=== PATIENT | male | born 1965 | race Caucasian/White ===

== ENCOUNTER 2021-06-28 14:57 | Emergency (ER) | payer MEDICARE, MEDICAID, SELFPAY ==
[2021-06-28 15:08] VITALS: BP 181/115; PULSE 110; RESP 18; TEMP 36.8; O2SAT 95; BMI 20.2
--- NOTE | 2021-06-28 15:21 | W.ED.ANIMALB ---
HPI - Animal Bite General: Chief Complaint: Animal Bite Stated Complaint: L leg abscess Time Seen by Provider: 06/28/21 15:16 History of Present Illness: Patient is a 56-year-old male comes to the ED with a spider bite on left leg. Past medical history of diabetes. Patient noticed spider bite approximately 2 days ago. He has been putting triple antibiotic ointment on it and keeping it covered. Spider bite is continued to get larger. Patient also has a wound on the bottom of his right foot that occurred when he stepped on attack over 2 weeks ago. Denies any redness, warmth or purulent discharge from wound and right foot. It is taking a while for it to heal. Patient is up-to-date on his tetanus. He has not had any past MRSA or staph infections. Denies any fever,, chest pain, shortness of breath, nausea/vomiting, bladder or bowel symptoms. Associated symptoms: Deny chills, fever(s) or headache(s) Review of Systems Const: Denies: fever(s), chills or fatigue Eyes: Denies: change in vision or eye discomfort ENMT: Denies: throat pain, odynophagia, nasal discharge or nasal congestion Card: Denies: chest pain, palpitations, edema, swelling of feet/ankles, dyspnea on exertion or orthopnea Resp: Denies: dyspnea, productive cough or non-productive cough GI: Denies: abdominal pain, nausea, vomiting, diarrhea, constipation or hematochezia : Denies: flank pain, difficulty urinating, dysuria or hematuria Musc: Denies: neck pain, back pain or extremity swelling Skin/Breast: Reports: new lesions (Spider bite on left leg.) and non-healing lesions (Wound on bottom right foot 2 weeks old.); Denies: rash Neuro: Denies: headache(s), numbness in extremities or weakness in extremities PFS ED PFSH: Medical History Diabetes Surgical History No pertinent past surgical history Physical Exam Const: COMMON NORMALS: no acute distress, patient oriented x3, healthy appearing and alert GENERAL APPEARANCE: cooperative and comfortable HENMT: COMMON NORMALS: normocephalic HEAD & SCALP: normocephalic MOUTH: Normal oral and palatal mucosa present THROAT: posterior oropharynx normal and uvula midline Neck/C-Spine: COMMON NORMALS: supple GENERAL: Yes normal visual inspection Resp: COMMON NORMALS: normal respiratory effort, No retractions, No use of accessory muscles and clear to auscultation bilaterally AUSCULTATION: clear to auscultation bilaterally Cardio: COMMON NORMALS: regular rate, regular rhythm, S1 normal heart sound present, S2 normal heart sound present, No gallops present (Cardio), No clicks present (Cardio), No murmurs present (Cardio) and Peripheral pulses 2+ throughout RATE: regular rate RHYTHM: regular rhythm HEART SOUNDS: S1 normal heart sound present and S2 normal heart sound present PERIPHERAL PULSES: Peripheral pulses 2+ throughout GI: COMMON NORMALS: Normal to inspection, nondistended, normoactive bowel sounds present, Soft to palpation, non-tender and no masses PALPATION: Yes Soft to palpation : COMMON NORMALS: Yes no CVA tenderness BLADDER/KIDNEY EXAM: Yes no CVA tenderness Back/Pelvis: COMMON NORMALS: no CVA tenderness Extremity: NARRATIVE EXTREMITY EXAM: Left leg?mid calf-circular lesion with some surrounding erythema. Approximately 1 cm in diameter. Skin ulceration around middle of lesion. No purulent drainage seen. No red streaking seen in left leg. Right foot?bottom of right foot showed a early stage ulcer. No erythema, warmth or purulent drainage noted. Skin breakdown only. no subcutaneous or muscle tissue seen Neuro: COMMON NORMALS: patient oriented x3 and moves all extremities SENSORIUM/ORIENTATION: Yes alert Skin: GENERAL SKIN EXAM: dry skin Course Vital Signs: Vital signs: Vital Signs Temperature 98.3 F 06/28/21 15:08 Pulse Rate 110 H 06/28/21 15:08 Respiratory Rate 18 06/28/21 15:08 Blood Pressure 181/115 06/28/21 15:08 Pulse Oximetry 95 06/28/21 15:08 MDM - Animal Bite Medical Decision Making Patient is a 56-year-old male comes to the ED with a spider bite on left leg and a ulcer on bottom of right foot. Patient is a diabetic. He is up-to-date on his tetanus. Both wounds did not appear infected. patient is nontoxic-appearing and in no acute distress or pain. Left leg wound does appear to be a spider bite likely from brown recluse. Surrounding erythema along wound that is circular and approximately 1 cm in diameter. Right foot ulcer does not appear infected either. I placed order with case management for patient referred to wound care clinic to follow-up with healing of both right foot ulcer and spider bite on left leg. Patient was discharged home with prescription for clindamycin. Return to ED precautions given. Patient will follow up with PCP as well next 7 to 10 days for reevaluation. Patient understood agree with plan. Discharge Plan Discharge Patient Disposition: Home Clinical Impression: Spider bite wound Qualifiers: Encounter type: initial encounter Injury intent: accidental or unintentional Qualified Code(s): T63.301A - Toxic effect of unspecified spider venom, accidental (unintentional), initial encounter Foot ulcer Qualifiers: Laterality: right Non-pressure ulcer stage: limited to breakdown of skin Qualified Code(s): L97.511 - Non-pressure chronic ulcer of other part of right foot limited to breakdown of skin Condition: Stable Prescriptions: New clindamycin HCl 150 mg capsule 300 mg PO QID 7 Days Qty: 56 0RF Discharge Orders: Discharge ED (Routine); Ordered 06/28/21 Ordered By: Juan Alberto Seymour Referrals: Pj Dejesus [Primary Care Provider] - Discharge Diet: Regular Discharge Activity: Increase activity as tolerated Patient Instructions: Brown Recluse Spider Bite (ED), Foot Care for People with Diabetes (DC), Diabetic Foot Ulcers (ED) Activity Restrictions/Additional Instructions: Follow-up with medical provider as directed. cant gang sawyer regarding in the next several days to set up an appointment with wound care clinic for follow-up. Take medications as prescribed. Return to the ER or your medical provider if condition worsens. Please read and understand discharge instructions. Thank you for choosing [facility] for your healthcare needs today. Please realize this is an emergency room and that we are providing you with a medical screening exam and this may not be complete and all inclusive of all the testing and or work up that you may need to determine your ailment or severity of your illness. It is very important that you follow up as instructed or that you return to the Emergency Department should you have concerns or if your condition changes or worsens in any way. Coding Level of Care Code ED Professor Of Family Medicine for Stiven Lopez Exam Comprehensive
--- NOTE | 2021-06-29 11:13 | DCPLANNER ---
Addendum entered by Gloria Burgess 07/20/21 21:12: Patient had a follow up appointment for patient with [facility] - patient did attend appointment. Addendum entered by Gloria Burgess 06/30/21 07:59: Patient has a follow up appointment scheduled for Monday, June 30, 2021 at 2:[address] Lima at [facility]. Clinic will call patient with appointment information. Original Note: games manager had message to schedule a follow up appointment for patient with [facility]. games manager sent patients information to the front office staff at [facility]. Patients information will be printed and reviewed. Clinic will call patient with appointment information.
== END 2021-06-28 15:31 | disposition home or self-care (01) ==
PROVIDERS: Emergency Provider Physician Assistant; PCP Nurse Practitioner Family
DX: T63.331A Toxic effect of venom of brown recluse spider, accidental (unintentional), initial encounter (principal); E11.621 Type 2 diabetes mellitus with foot ulcer; L97.511 Non-pressure chronic ulcer of other part of right foot limited to breakdown of skin
CPT/HCPCS: 99281

== ENCOUNTER → 2021-06-30 13:52 | Outpatient (BNVA) | payer MEDICARE, MEDICAID, SELFPAY | PROVIDERS: PCP Nurse Practitioner Family; Visit Provider Thoracic Surgery (Cardiothoracic Vascular Surgery) | DX: E11.622 Type 2 diabetes mellitus with other skin ulcer (principal); L97.821 Non-pressure chronic ulcer of other part of left lower leg limited to breakdown of skin; I96 Gangrene, not elsewhere classified; E11.621 Type 2 diabetes mellitus with foot ulcer; L97.521 Non-pressure chronic ulcer of other part of left foot limited to breakdown of skin; Z87.891 Personal history of nicotine dependence | CPT/HCPCS: 11042; 97597; 99203; 99213; A6250 ==

== ENCOUNTER 2021-10-03 16:13 | Inpatient (IN) | payer MEDICARE, MEDICAID, SELFPAY ==
[2021-10-03 16:22] VITALS: BP 163/102; PULSE 116; RESP 18; TEMP 37.9; O2SAT 96
--- NOTE | 2021-10-03 17:10 | ED_ITS ---
HPI - General Adult General: Chief complaint: Extremity Problem,Nontraumatic Stated complaint: right leg pain/swelling Time Seen by Provider: 10/03/21 17:06 History of Present Illness: Patient is a 56-year-old male with history of diabetes, gout presenting to emergency room with right big toe base swelling and erythema tracking up the right leg for the last 2 days. Patient tells me that he noticed that there are 2 puncture wounds on the bottom of his foot. Patient denies catching his foot on anything. Patient thought initially that he may be developing podagra but because the spreading redness and pain with bearing weight, he decided to come to the emergency room for further evaluation. Patient denies any fever chills, nausea/vomiting, or prior hx of podagra. Onset: 2 days ago Duration:2 days Location:home Severity:moderate Associated symptoms: Deny chest pain, dyspnea, nausea, palpitations or vomiting Review of Systems Const: Denies: fever(s) or chills Eyes: Denies: change in vision ENMT: Denies: mouth pain Card: Denies: chest pain or palpitations Resp: Denies: dyspnea or non-productive cough GI: Denies: abdominal pain, nausea, vomiting or diarrhea : Denies: dysuria Musc: Denies: extremity pain Skin/Breast: Reports: new lesions (+R foot/leg erythema and swelling) Neuro: Denies: weakness in extremities Psych: Reports: other (Normal mood) Rashawn/Lymph: Denies: easy bruising PFSH ED PFSH: Medical History Diabetes Gout Surgical History No pertinent past surgical history Social History Smoking and tobacco status: never smoked Alcohol intake: never Substance/Drug Use: never Physical Exam Const: COMMON NORMALS: alert HENMT: COMMON NORMALS: atraumatic HEAD & SCALP: atraumatic MOUTH: moist mucous membranes not abnormal Eye: COMMON NORMALS: EOMs intact bilaterally and conjunctivae normal CONJUNCTIVA: Yes conjunctivae normal Neck/C-Spine: COMMON NORMALS: full ROM and supple Resp: COMMON NORMALS: normal respiratory effort and clear to auscultation bilaterally AUSCULTATION: clear to auscultation bilaterally Cardio: COMMON NORMALS: regular rate RATE: regular rate GI: COMMON NORMALS: Soft to palpation and non-tender PALPATION: Yes Soft to palpation Extremity: COMMON NORMALS: full ROM Neuro: SENSORIUM/ORIENTATION: Yes alert MOTOR EXAM: No Abnormal motor strength present and Other motor observations present (no focal motor deficits) Psych: COMMON NORMALS: speech normal SPEECH: Yes normal speech MOOD & AFFECT: Yes euthymic mood Course Vital Signs: Vital signs: Vital Signs Temperature 100.3 F H 10/03/21 16:22 Pulse Rate 116 H 10/03/21 16:22 Respiratory Rate 18 10/03/21 16:22 Blood Pressure 163/102 10/03/21 16:22 Pulse Oximetry 96 10/03/21 16:22 MDM - General Adult Medical Decision Making 56-year-old male with history of gout and diabetes presenting to the emergency room with concerns of swelling and tracking erythema of the right big toe going into the inner aspect of the right leg. On exam, patient has a low-grade fever 100.3 degrees. Patient is noted to be mildly tachycardic to low 100s. White count 8.9 today. XR of the foot did not show any gas pattern. Patient is able to range the toe do not suspect septic joint at this time. CRP is grossly elevated 141. Patient received vancomycin and Zosyn for tracking cellulitis in the setting of diabetes possible puncture wound. Case was discussed with Dr. Mcgovern who recommended inpatient admission for observation at this time and will follow the case. Disposition: observation Lab Data : 10/03/21 17:18 10/03/21 17:18 Laboratory Results WBC 8.9 10^3/uL (4.0-10.0) 10/03/21 17:18 RBC 4.41 10^6/uL (4.1-5.3) 10/03/21 17:18 Hgb 12.1 g/dL (11.7-16.6) 10/03/21 17:18 Hct 36.1 % (42.0-52.0) L 10/03/21 17:18 MCV 81.9 fl (80-94) 10/03/21 17:18 MCH 27.4 pg (28.0-34.0) L 10/03/21 17:18 MCHC 33.5 g/dL (30.0-36.0) 10/03/21 17:18 RDW 13.4 % (12.1-15.1) 10/03/21 17:18 Plt Count 236 10^3/cmm (130-400) 10/03/21 17:18 MPV 9.9 fL (7.4-10.4) 10/03/21 17:18 Neut % (Auto) 73.5 % 10/03/21 17:18 Lymph % (Auto) 13.7 % 10/03/21 17:18 [place] % (Auto) 11.8 % 10/03/21 17:18 Eos % (Auto) 0.3 % 10/03/21 17:18 Baso % (Auto) 0.1 % 10/03/21 17:18 Neut # (Auto) 6.52 10^3/uL (1.8-7.7) 10/03/21 17:18 Lymph # (Auto) 1.2 10^3/uL (0.8-4.8) 10/03/21 17:18 [place] # (Auto) 1.1 10^3/uL (0.2-0.9) H 10/03/21 17:18 Eos # (Auto) 0.0 10^3/uL (0.0-0.8) 10/03/21 17:18 Baso # (Auto) 0.0 10^3/uL (0.0-0.1) 10/03/21 17:18 Nucleated RBC % (auto) 0 % 10/03/21 17:18 Nucleated RBCs # 0.0 /100WBC 10/03/21 17:18 ESR 39 mm/hr (0-10) H 10/03/21 17:18 Sodium 133 mmol/L (136-145) L 10/03/21 17:18 Potassium 4.0 mmol/L (3.5-5.1) 10/03/21 17:18 Chloride 96 mmol/L (98-107) L 10/03/21 17:18 Carbon Dioxide 27 mmol/L (22-29) 10/03/21 17:18 Anion Gap 14.0 (5-19) 10/03/21 17:18 BUN 10 mg/dL (6-20) 10/03/21 17:18 Creatinine 0.7 mg/dL (0.7-1.2) 10/03/21 17:18 GFR Calculation 117.5 mL/min (90-130) 10/03/21 17:18 Glucose 335 mg/dL (65-115) H 10/03/21 17:18 Calculated Osmolality 288 mOsm/kg (285-295) 10/03/21 17:18 Calcium 8.9 mg/dL (8.5-10.5) 10/03/21 17:18 C-Reactive Protein 141.7 mg/L (0.0-4.9) H 10/03/21 17:18 Discharge Plan Discharge Patient Disposition: Admitted As Inpatient Clinical Impression: Cellulitis, Pain and swelling of toe Condition: Stable Coding Level of Care Code ED Surgical Aide for Stiven Fwtroy Exam Comprehensive
--- NOTE | 2021-10-03 17:19 | XRR_ITS ---
PROCEDURE INFORMATION: Exam: XR Right Foot Exam date and time: 10/03/2021 5:49 PM Age: 56 years old Clinical indication: Swelling, leg or foot; Additional info: Foot swelling TECHNIQUE: Imaging protocol: Radiologic exam of the Right foot. Views: 1 or 2 views. COMPARISON: No relevant prior studies available. FINDINGS: Bones/joints: Pes planus. No evidence for acute fracture. Soft tissues: There is edema in the soft tissues. XR/XR foot RT 2V [id number] IMPRESSION: 1. Pes planus. 2. There is edema in the soft tissues.
[2021-10-03 17:27] LABS: Basophils % 0.1 %; Eosinophils % 0.3 %; Hematocrit 36.1 % (42.0-52.0); Hemoglobin 12.1 g/dL (11.7-16.6); Lymphocytes # 1.2 10^3/uL (0.8-4.8); Lymphocytes % 13.7 %; Mean Corpuscular HGB Conc 33.5 g/dL (30.0-36.0); Mean Corpuscular Hemoglobin 27.4 pg (28.0-34.0); Mean Corpuscular Volume 81.9 fl (80-94); Mean Platelet Volume 9.9 fL (7.4-10.4); Monocytes # 1.1 10^3/uL (0.2-0.9); Monocytes % 11.8 %; Neutrophils # 6.52 10^3/uL (1.8-7.7); Neutrophils % 73.5 %; Nucleated Red Blood Cells % 0 %; Platelet Count 236 10^3/cmm (130-400); Red Blood Count 4.41 10^6/uL (4.1-5.3); Red Cell Distribution Width 13.4 % (12.1-15.1); White Blood Count 8.9 10^3/uL (4.0-10.0)
[2021-10-03 17:44] LABS: Blood Urea Nitrogen 10 mg/dL (6-20); C Reactive Protein 141.7 mg/L (0.0-4.9); Calcium 8.9 mg/dL (8.5-10.5); Carbon Dioxide 27 mmol/L (22-29); Chloride 96 mmol/L (98-107); Glomerular Filtration Rate 117.5 mL/min (90-130); Glucose 335 mg/dL (65-115); Osmolality Calculated 288 mOsm/kg (285-295); Sodium 133 mmol/L (136-145)
[2021-10-03] MEDS: piperacillin-tazobactam 4.5 GM in sodium chloride 0.9% (plus) 50 ML IV (17:51)
[2021-10-03] MEDS: sodium chloride 0.9% 1,000 ML 999 ML IV (17:54)
[2021-10-03 17:56] LABS: Erythrocyte Sedimentation Rate 39 mm/hr (0-10)
[2021-10-03] MEDS: acetaminophen 500 mg Tablet 1000 MG PO (18:01)
[2021-10-03] MEDS: vancomycin 1,000 MG in sodium chloride 0.9% 250 ML 250 MG IV (18:41)
--- NOTE | 2021-10-03 19:55 | P.HP_ITS ---
Providers/Chief Complaint Admitting Physician: Rupert Peres Primary Care Provider: Pj Dejesus Chief Complaint: right leg pain/swelling History of Present Illness Pleasant 56-year-old gentleman with history of diabetes, gout, noticed redness, swelling initially in the bottom of the right hallux, starting around - Monday, with pain, redness, swelling spreading to the entire toe, proximal foot and a thin strand of redness tracking upward from the medial leg. He is now also developed chills, in ER he is noted to be febrile 100.3. Sinus tachycardia 116. ESR is 39. CRP 141.7. He denies remembering any definitive injury. No fracture noted on x-ray. He initially started taking a gout medication thinking it was a gout flare. Blood cultures were collected and he was started on Zosyn, vancomycin empirically. He is awaiting additional assessment by podiatry. Review of Systems Const: Reports: fever(s) and chills Eyes: Denies: change in vision, eye discomfort or eye redness ENMT: Denies: throat pain, oral sores or ear or mastoid pain Card: Denies: chest pain, edema, pre-syncope or dyspnea on exertion Resp: Denies: dyspnea, productive cough, change in phlegm color or hemoptysis GI: Denies: abdominal pain, nausea, vomiting, diarrhea, constipation, hematochezia or melena : Denies: flank pain, difficulty urinating, urinary frequency or hematuria Musc: Reports: other (As above.); Denies: back pain Skin/Breast: Denies: rash or new lesions Neuro: Denies: headache(s), numbness in extremities, weakness in extremities, dizziness, confusion or seizure-like activity Endo: Denies: polyuria or polydipsia Rashawn/Lymph: Denies: easy bleeding or tender lymph nodes All/Imm: Denies: urticaria or tongue swelling Medications/Allergies Allergies Allergy/AdvReac Type Severity Reaction Status Date / Time iodine Allergy ALGY-Swell Verified 10/03/21 16:25 Lip/Tongue/Throat Sulfa (Sulfonamide Allergy ADR-Itching Verified 10/03/21 16:25 Antibiotics) PFSH Acute PFSH: Medical History (Updated 10/03/21 @ 20:04 by Rupert Peres MD) Diabetes Gout Surgical History No pertinent past surgical history Family History Mother Diabetes Social History Smoking and tobacco status: never smoked Alcohol intake: never Substance/Drug Use: never Vitals/I&O/Wt Last Vital Signs Temp 100.3 F H 10/03/21 16:22 Pulse 116 H 10/03/21 16:22 Resp 18 10/03/21 16:22 BP 163/102 10/03/21 16:22 Pulse Ox 96 10/03/21 16:22 Weight last 48 hrs Weight 79.379 kg Physical Exam Const: COMMON NORMALS: alert GENERAL APPEARANCE: cooperative ORIENTATION/CONSCIOUSNESS: Yes awake HENMT: COMMON NORMALS: normocephalic, EAC's normal, Normal external nose present and moist oral mucous membranes HEAD & SCALP: normocephalic NOSE: Normal external nose present EXTERNAL AUDITORY CANAL: EAC's normal Neck/C-Spine: COMMON NORMALS: no meningeal signs Chest: CHEST: Yes Symmetrical chest wall rise Resp: COMMON NORMALS: clear to auscultation bilaterally AUSCULTATION: clear to auscultation bilaterally Cardio: COMMON NORMALS: regular rate, regular rhythm and No murmurs present (Cardio) RATE: regular rate RHYTHM: regular rhythm GI: COMMON NORMALS: Normal to inspection, nondistended, normoactive bowel sounds present, Soft to palpation and non-tender PALPATION: Yes Soft to palpation Extremity: COMMON NORMALS: no pedal edema OTHER: R hallux swelling, two spots of 0.5cm bruising medially. Thin red strand tracking up medial side of lower leg to mid-[place]. Neuro: COMMON NORMALS: moves all extremities SENSORIUM/ORIENTATION: Yes alert MENINGEAL SIGNS: Yes no meningeal signs Psych: COMMON NORMALS: mental status grossly normal Skin: COMMON NORMALS: no wounds RASHES: no rashes Data : 10/03/21 17:18 10/03/21 17:18 Micro: Microbiology 10/03/21 17:44 Blood Culture - Preliminary Blood SPECIMEN COLLECTED 10/03/21 17:44 Blood Culture - Preliminary Blood SPECIMEN COLLECTED A&P Assessment and plan (1) Diabetic foot infection: Infection of right hallux with redness, swelling, tenderness, bruising, with chills, fever, lymphatic tracking on medial side of her right leg. Elevation of CRP, ESR. Possible sepsis with sinus tachycardia 116. Fever 100.3. Check lactate. Continue. Antibiotics with Zosyn, vancomycin. Follow-up blood cultures. MRI right foot to assess for deeper infection/osteomyelitis. Pending evaluation by podiatry. Status: Acute (2) Gout: Has also history of gout. Check uric acid. Status: Acute Plan Diabetes: Normally takes 5 units of Basaglar at night. Metformin and glipizide. Hold oral hypoglycemics for now. Continue long-acting insulin. Sliding scale. Attestations Medical Necessity Statement*: Place in observation for additional assessment management of diabetic foot infection, assessment for deep infection, possible osteomyelitis, with possible sepsis. Coding Level of Care Code Acute Natural Resources Professor for [facility] Fwd Exam Comprehensive Diagnoses Diabetic foot infection E11.628; L08.9 Gout M10.9
[2021-10-03 20:13] VITALS: BMI 17.0
[2021-10-03 20:23] VITALS: BP 160/87; PULSE 96; RESP 16; TEMP 37.3; O2SAT 97
[2021-10-03 20:48] LABS: Lactate (Lactic Acid level) 2.7 mmol/L (0.5-2.2)
[2021-10-03 20:49] LABS: Uric Acid 4.3 mg/dL (3.4-7.0)
[2021-10-03 20:54] LABS: Glucose Point of Care 167 mg/dL (70-110)
--- NOTE | 2021-10-03 21:22 | P.CONIM_ITS ---
Providers/Reason For Consult Consulting Physician/Specialty*: Alvin Mcgovern D.P.M. Reason for Consult*: Cellulitis right lower extremity Attending Physician: Rupert Peres Primary Care Provider: Pj Dejesus History of Present Illness History of Present Illness Armando Berumen is a 56 year old male presented to the emergency department last night 10/03/2021 and admitted to the hospital service per emergency physicians recommendations. Friday, October 01, 2021 he began noticing redness at his right great toe and was unsure of the etiology. Does not remember stepping on anything. Patient has history of gout was also diabetic, uncontrolled last A1c 11.97 1122. Patient denies any subjective nausea, vomiting, fever, chills, shortness of breath or chest pain. Review of Systems General: Reports: 10 or more systems reviewed and unremarkable except in HPI and below Const: Denies: fever(s) or chills Card: Denies: chest pain or palpitations Resp: Denies: productive cough GI: Denies: abdominal pain, nausea or vomiting : Denies: flank pain Musc: Reports: extremity swelling, joint pain, joint stiffness, limited range of motion and deformity Skin/Breast: Reports: erythema, skin tenderness, skin swelling, sores, nail changes and change in hair; Denies: rash Neuro: Reports: numbness in extremities, sensory changes and difficulty walking Psych: Denies: suicidal ideation Rashawn/Lymph: Denies: easy bruising Medications/Allergies Home Medications Medication Instructions Recorded Confirmed Last Taken Type amoxicillin 875 mg-potassium 1 tab PO Q12H 10/03/21 10/03/21 09/30/21 History clavulanate 125 mg tablet colchicine 0.6 mg tablet 0.6 mg PO BID 10/03/21 10/03/21 10/02/21 23:00 History duloxetine 30 mg capsule,delayed 30 mg PO BID 10/03/21 10/03/21 10/02/21 23:00 History release gabapentin 100 mg capsule 100 mg PO TID 10/03/21 10/03/21 10/02/21 23:00 History glipizide 10 mg tablet 20 mg PO BID 10/03/21 10/03/21 10/02/21 23:00 History insulin glargine 100 unit/mL (3 5 unit SUBCUT BEDTIME 0710/03/21 10/01/21 23:00 History mL) subcutaneous pen (Basaglar KwikPen U-100 Insulin) ketorolac 10 mg tablet 10 mg PO Q6H PRN 10/03/21 10/03/21 Unknown History lisinopril 20 mg tablet 20 mg PO BID 10/03/21 10/03/21 10/02/21 23:00 History metformin 1,000 mg tablet 1,000 mg PO BIDWMEAL 10/03/21 10/03/21 10/02/21 23:00 History propranolol 40 mg tablet 40 mg PO BEDTIME 10/03/21 10/03/21 09/30/21 23:00 History rizatriptan 10 mg tablet 10 mg PO Q2H PRN 10/03/21 10/03/21 Unknown History simvastatin 20 mg tablet 20 mg PO BEDTIME 10/03/21 10/03/21 10/02/21 23:00 History sitagliptin 50 mg tablet (Januvia) 50 mg PO BEDTIME 10/03/21 10/03/21 10/02/21 23:00 History trazodone 50 mg tablet 50 mg PO BEDTIME 10/03/21 10/03/21 10/01/21 23:00 History Allergies Allergy/AdvReac Type Severity Reaction Status Date / Time iodine Allergy ALGY-Swell Verified 10/03/21 16:25 Lip/Tongue/Throat Sulfa (Sulfonamide Allergy ADR-Itching Verified 10/03/21 16:25 Antibiotics) PFSH Acute PFSH: Medical History (Updated 10/04/21 @ 07:56 by Alvin Mcgovern DPM) Diabetes Gout Surgical History No pertinent past surgical history Family History Mother Diabetes Social History Smoking and tobacco status: never smoked Alcohol intake: never Substance/Drug Use: never Vitals/I&O/Wt Last Vital Signs Temp 99.2 F 10/03/21 20:23 Pulse 96 10/03/21 20:23 Resp 16 07/10/22 20:23 BP 160/87 10/03/21 20:23 Pulse Ox 97 10/03/21 20:23 10/03/21 10/03/21 10/03/21 06:59 14:59 22:59 Intake Total 1300 / 1300 Balance 1300 / 1300 Weight last 48 hrs Weight 133 lb Weight 175 lb Physical Exam Narrative: GENERAL: Patient is alert and oriented ?3 and in no acute distress. The following is a focused bilateral lower extremity exam. VASCULAR: Dorsalis pedis palpable bilaterally. Posterior tibial arteries palpable +2. Capillary refill time less than 3 seconds to the distal hallux bilaterally. Calf is supple and nontender proximally and distally. Decreased pedal hair growth. Focal edema to the right great toe. NEUROLOGICAL: Protective sensation intact 6/10 sites, tested with [place] Megan monofilament to bilateral feet. DERMATOLOGICAL: Puncture wound to the plantar medial aspect of the right great toe just distal to the hallux interphalangeal joint, no surrounding hyperkeratosis, does not probe, tunnel or undermine. There is cellulitis with proximal lymphangitic streaking up the medial aspect of the leg. No jeremiah purulence. No necrosis or target/bull's-eye pattern. MUSCULOSKELETAL: Tenderness at right great toe distal to the metatarsal phalangeal joint. Pes planus foot type. Data : 10/04/21 04:28 10/04/21 04:28 Micro: Microbiology 10/03/21 17:44 Blood Culture - Preliminary Blood SPECIMEN COLLECTED 10/03/21 17:44 Blood Culture - Preliminary Blood SPECIMEN COLLECTED A&P Assessment and plan (1) Cellulitis of right lower extremity: Status: Acute (2) Insect bite of right foot: Status: Acute (3) Diabetic peripheral neuropathy associated with type 2 diabetes mellitus: Status: Acute Plan 56-year-old uncontrolled diabetic male with cellulitis and lymphangitic streaking right lower extremity originating from right great toe, 2 small puncture wounds consistent with insect bite appreciated, does not have clinical appearance of neuropathic foot ulcer. Receiving empiric antibiotics at this time vancomycin and Zosyn, wound not deep enough to capture viable wound culture. Skin marker outlines involvement of cellulitis will monitor his response and plan on discharge with oral antibiotics when he shows clinical improvement. Can follow-up closely this week in podiatry clinic at discharge. 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
--- NOTE | 2021-10-03 22:02 | PC.PHAR ---
Vancomycin is dosed at 1250mg IVPB every 12 hours to produce a predicted trough level of 15.73 (population based pharmacokinetic analysis). A trough level has been ordered from the lab to be obtained before th fourth dose to confirm and adjust if needed.
[2021-10-03] MEDS: insulin lispro 100 unit/1 mL SUBCUT (22:42)
[2021-10-03] MEDS: enoxaparin 40 mg/0.4 mL Syringe SUBCUT (22:43)
[2021-10-03] MEDS: insulin glargine 100 units/1 mL 5 UNIT SUBCUT (22:44)
[2021-10-03 23:23] VITALS: BP 148/100; PULSE 97; RESP 18; TEMP 37.1; O2SAT 97
--- NOTE | 2021-10-03 23:23 | PC.NURSE ---
I reported the high bp to the nurse. 148/100
[2021-10-04] MEDS: propranolol 40 mg Tablet PO ×2 (00:21→20:11)
[2021-10-04] MEDS: trazodone 50 mg Tablet PO ×2 (00:21→20:11)
[2021-10-04] MEDS: atorvastatin 40 mg Tablet 20 MG PO ×2 (00:21→20:12)
[2021-10-04] MEDS: piperacillin-tazobactam 3.375 GM in sodium chloride 0.9% (plus) 50 ML IV ×3 (00:22→17:41)
[2021-10-04 04:00] VITALS: BP 143/94; PULSE 95; RESP 14; TEMP 37.6; O2SAT 94
[2021-10-04 04:40] LABS: Basophils % 0.2 %; Eosinophils # 0.1 10^3/uL (0.0-0.8); Eosinophils % 1.5 %; Hematocrit 33.2 % (42.0-52.0); Hemoglobin 11.3 g/dL (11.7-16.6); Lymphocytes # 1.6 10^3/uL (0.8-4.8); Lymphocytes % 18.9 %; Mean Corpuscular Hemoglobin 27.5 pg (28.0-34.0); Mean Corpuscular Volume 80.8 fl (80-94); Mean Platelet Volume 9.7 fL (7.4-10.4); Monocytes # 1.1 10^3/uL (0.2-0.9); Monocytes % 13.1 %; Neutrophils # 5.46 10^3/uL (1.8-7.7); Neutrophils % 66.1 %; Nucleated Red Blood Cells % 0 %; Platelet Count 211 10^3/cmm (130-400); Red Blood Count 4.11 10^6/uL (4.1-5.3); Red Cell Distribution Width 13.4 % (12.1-15.1); White Blood Count 8.3 10^3/uL (4.0-10.0)
[2021-10-04 05:05] LABS: Blood Urea Nitrogen 7 mg/dL (6-20); Calcium 8.3 mg/dL (8.5-10.5); Carbon Dioxide 29 mmol/L (22-29); Chloride 102 mmol/L (98-107); Glomerular Filtration Rate 117.5 mL/min (90-130); Glucose 161 mg/dL (65-115); Osmolality Calculated 289 mOsm/kg (285-295); Sodium 139 mmol/L (136-145)
[2021-10-04 05:35] LABS: Estmated Average Glucose 295; Hemoglobin A1C 11.9 % (4.0-6.0)
[2021-10-04 06:14] LABS: Glucose Point of Care 167 mg/dL (70-110)
[2021-10-04 07:30] VITALS: BP 138/89; PULSE 86; RESP 18; TEMP 36.9; O2SAT 96
[2021-10-04 08:48] LABS: Thyroid Stimulating Hormone 1.18 uIU/mL (0.27-4.20)
[2021-10-04] MEDS: duloxetine 30 mg Capsule PO ×2 (08:54→17:40)
[2021-10-04] MEDS: gabapentin 100 mg Capsule PO ×3 (08:54→20:12)
[2021-10-04] MEDS: colchicine 0.6 mg Tablet PO ×2 (09:15→17:40)
[2021-10-04] MEDS: insulin lispro 100 unit/1 mL SUBCUT ×4 (09:16→21:55)
--- NOTE | 2021-10-04 09:30 | MR_ITS ---
WS: [id number] INDICATION: Foot swelling. Osteomyelitis. TECHNIQUE: MRI the RIGHT foot without and with gadolinium enhancement. Coronal PD coronal PD fat sat axial T2 and axial PD axial T2 fat sat post gadolinium imaging was obtained with facet. Technique FINDINGS: Osteopenia. Pes planus. Mild soft tissue edema plantar forefoot. Normal fatty T1 bone marro w signal in the metatarsals. Small area of ulceration in the area of palpable concern along the dista l 1st phalanx. Small amount of soft tissue edema. No drainable abscess or fluid collection. Degenerat unique cystic change in this area. T1 bone marrow appears preserved. No convincing evidence of osteomyel itis in this area. This area is somewhat difficult to evaluate due to the distal location and loss of signal in this area. MR/MR foot RT wo/w con [id number] IMPRESSION: 1. Small amount of cellulitis in the area of ulceration distal phalanx 1st toe . 2. No evidence of drainable abscess or fluid collection. 3. No convincing evidence of osteomyelitis. Bone marrow signal appears preserv ed in this area
[2021-10-04 11:00] VITALS: BP 159/90; PULSE 65; O2SAT 97
[2021-10-04 11:02] LABS: Iron 21 ug/dL (59-158); Percent Saturation 12.4 % (20-50); Total Iron Binding Capacity 169 mcg/dl; Unsaturated Iron Binding 148 ug/dL (112-347)
[2021-10-04 11:24] LABS: Glucose Point of Care 256 mg/dL (70-110)
[2021-10-04 14:25] LABS: Add Urine Microscopic? YES; Bilirubin Urine Neg (Negative); Blood Urine Neg (Negative); Glucose Urine UA 4+ (Normal); Ketones Urine Negative (Negative); Leukocyte Esterase Urine Negative (Negative); Nitrate Urine Negative (Negative); Protein Urine Trace (Negative); Specific Gravity, Urine 1.015 (1.005-1.030); Urine Appearance Clear (CLEAR); Urine Color Yellow (Yellow); Urobilinogen Urine Norm (Negative); pH Urine 6 (5-7)
[2021-10-04 14:26] LABS: Add Urine Culture? No; Bacteria Urine TRACE /hpf; WBC Urine RARE /hpf (0-5)
--- NOTE | 2021-10-04 14:56 | P.PN_ITS ---
Subjective Subjective: Admitted overnight. No acute events overnight. Denies any nausea, vomiting, headache. Has remained hemodynamically stable and afebrile. Vitals/I&O/Wt Last Vital Signs Temp 98.4 F 10/04/21 07:30 Pulse 65 10/04/21 11:00 Resp 18 10/04/21 07:30 BP 159/90 10/04/21 11:00 Pulse Ox 97 10/04/21 11:00 10/03/21 10/04/21 10/04/21 22:59 06:59 14:59 Intake Total 1540 / 1540 50 / 1590 300 / 300 Output Total 650 / 650 Balance 1540 / 1540 50 / 1590 -350 / -350 Weight last 48 hrs Weight 60.328 kg Weight 79.379 kg Physical Exam Const: COMMON NORMALS: alert GENERAL APPEARANCE: cooperative ORIENTATION/CONSCIOUSNESS: Yes awake HENMT: COMMON NORMALS: normocephalic, EAC's normal, Normal external nose present and moist oral mucous membranes HEAD & SCALP: normocephalic NOSE: Normal external nose present EXTERNAL AUDITORY CANAL: EAC's normal Neck/C-Spine: COMMON NORMALS: no meningeal signs Chest: CHEST: Yes Symmetrical chest wall rise Resp: COMMON NORMALS: clear to auscultation bilaterally AUSCULTATION: clear to auscultation bilaterally Cardio: COMMON NORMALS: regular rate, regular rhythm and No murmurs present (Cardio) RATE: regular rate RHYTHM: regular rhythm GI: COMMON NORMALS: Normal to inspection, nondistended, normoactive bowel soun ds present, Soft to palpation and non-tender PALPATION: Yes Soft to palpation Extremity: COMMON NORMALS: no pedal edema OTHER: Clean dressing as per podiatry. Neuro: COMMON NORMALS: moves all extremities SENSORIUM/ORIENTATION: Yes alert MENINGEAL SIGNS: Yes no meningeal signs Psych: COMMON NORMALS: mental status grossly normal Skin: COMMON NORMALS: no wounds RASHES: no rashes Data : 10/04/21 04:28 10/04/21 04:28 Micro: Microbiology 10/04/21 13:02 Bacterial Antigens - Final Urine Kidney 10/03/21 17:44 Blood Culture - Preliminary Blood SPECIMEN COLLECTED 10/03/21 17:44 Blood Culture - Preliminary Blood SPECIMEN COLLECTED A&P Assessment and plan (1) Diabetic foot infection: ESR mildly elevated. X-ray negative for osteomyelitis. MRI ordered overnight. Check MRSA swab. Follow blood culture. For now continue with vancomycin and Zosyn. Status: Acute (2) Gout: Has also history of gout. Check uric acid. Status: Acute (3) Diabetic peripheral neuropathy associated with type 2 diabetes mellitus: Status: Acute (4) Insect bite of right foot: Status: Acute (5) Diabetes: Uncontrolled. A1c more than 11. At home takes Basaglar 5 units, metformin and glipizide. Discussed in detail for possible need of being on insulin going forward. Patient is agreeable. For now continue with Lantus 15 units daily. Insulin sliding scale at moderate dose protocol. Most likely will need to discharge on one-time Lantus and Premeal insulin. We will monitor blood sugars for next 24 hours and decide about the dose accordingly. Status: Acute Plan Analgesia: Ketorolac 10 mg every 6 hourly, Tylenol, gabapentin 100 mg 3 times daily Glycemic control: Lantus 15 units, moderate dose protocol Nutrition: Cardiac carb consistent diet CODE STATUS: Full code PUD prophylaxis: Not needed DVT prophylaxis: Not needed Discharge planning: Plan to discharge within 24 hours once medically cleared if cellulitis continues to improve on oral antibiotics. Continue care at [facility] floor. 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
[2021-10-04 16:00] VITALS: BP 159/93; PULSE 86; RESP 15; TEMP 36.9; O2SAT 98
[2021-10-04 17:41] LABS: Glucose Point of Care 217 mg/dL (70-110)
--- NOTE | 2021-10-04 19:02 | PC.NURSE ---
Bedside report given to Yadira KOENIG at this time. Pt A&Ox4 with normal respirations.
[2021-10-04 20:00] VITALS: BP 107/55; PULSE 96; RESP 16; TEMP 37.1; O2SAT 96
[2021-10-04] MEDS: enoxaparin 40 mg/0.4 mL Syringe SUBCUT (20:12)
[2021-10-04 21:33] LABS: Glucose Point of Care 292 mg/dL (70-110)
[2021-10-04] MEDS: insulin glargine 100 units/1 mL 15 UNIT SUBCUT (21:55)
[2021-10-05] VITALS: BP 142/87; PULSE 76; RESP 18; TEMP 37.1; O2SAT 96
[2021-10-05] MEDS: piperacillin-tazobactam 3.375 GM in sodium chloride 0.9% (plus) 50 ML IV ×2 (01:20→08:09)
[2021-10-05 04:00] VITALS: BP 134/68; PULSE 85; TEMP 36.3; O2SAT 97
[2021-10-05 04:54] LABS: Basophils % 0.2 %; Eosinophils # 0.1 10^3/uL (0.0-0.8); Eosinophils % 1.7 %; Hemoglobin 11.3 g/dL (11.7-16.6); Lymphocytes # 1.4 10^3/uL (0.8-4.8); Lymphocytes % 17.5 %; Mean Corpuscular HGB Conc 33.2 g/dL (30.0-36.0); Mean Corpuscular Hemoglobin 27.3 pg (28.0-34.0); Mean Corpuscular Volume 82.1 fl (80-94); Mean Platelet Volume 9.8 fL (7.4-10.4); Neutrophils # 5.62 10^3/uL (1.8-7.7); Neutrophils % 68.1 %; Nucleated Red Blood Cells % 0 %; Platelet Count 261 10^3/cmm (130-400); Red Blood Count 4.14 10^6/uL (4.1-5.3); Red Cell Distribution Width 13.2 % (12.1-15.1); White Blood Count 8.3 10^3/uL (4.0-10.0)
[2021-10-05 05:17] LABS: Alanine Aminotransferase 14 U/L (0-41); Albumin Level 3.4 g/dL (3.5-5.2); Alkaline Phosphatase 63 IU/L (40-130); Anion Gap 12.5 (5-19); Aspartate Amino Transferase 12 U/L (0-40); Blood Urea Nitrogen 9 mg/dL (6-20); Calcium 8.5 mg/dL (8.5-10.5); Carbon Dioxide 29 mmol/L (22-29); Chloride 101 mmol/L (98-107); Chol HDL Ratio 3.05 mg/dL (1.0-5.00); Cholesterol 128 mg/dL (0-200); Globulin 3.2 g/dL (1.3-4.6); Glomerular Filtration Rate 117.5 mL/min (90-130); Glucose 150 mg/dL (65-115); HDL Cholesterol 42 mg/dL (60-100); LDL Cholesterol Calculated 68 mg/dL (50-129); Osmolality Calculated 290 mOsm/kg (285-295); Potassium 3.5 mmol/L (3.5-5.1); Sodium 139 mmol/L (136-145); Total Bilirubin 0.6 mg/dL (0.15-1.2); Total Protein 6.6 g/dL (6.6-8.7); Triglycerides 91 mg/dL (0-150); VLDL Cholestrol Calculation 18 mg/dL (0-30)
--- NOTE | 2021-10-05 07:33 | PM.PN ---
Subjective Subjective: Patient seen bedside this morning, tolerating regular diet. Reports decreased swelling and decreased pain to the right foot. Patient denies any subjective nausea, vomiting, fever, chills, shortness of breath or chest pain. Vitals/I&O/Wt Last Vital Signs Temp 97.3 F L 10/05/21 04:00 Pulse 85 10/05/21 04:00 Resp 18 10/05/21 00:00 BP 134/68 10/05/21 04:00 Pulse Ox 97 10/05/21 04:00 10/04/21 10/05/21 10/05/21 22:59 06:59 14:59 Intake Total 280 / 580 310 / 890 Output Total 225 / 875 Balance 55 / -295 310 / 15 Weight last 48 hrs Weight 133 lb Weight 175 lb Physical Exam Narrative: GENERAL: Patient is alert and oriented ?3 and in no acute distress. The following is a focused bilateral lower extremity exam. VASCULAR: Dorsalis pedis palpable bilaterally. Posterior tibial arteries palpable +2. Capillary refill time less than 3 seconds to the distal hallux bilaterally. Calf is supple and nontender proximally and distally. Decreased pedal hair growth. Focal edema to the right great toe. NEUROLOGICAL: Protective sensation intact 6/10 sites, tested with [place] Megan monofilament to bilateral feet. DERMATOLOGICAL: Previously documented puncture wound to the plantar medial aspect of the right great toe is no longer draining. Previously documented lymphangitic streaking up the medial ankle and medial leg has resolved. Erythema localized at the medial foot also subsiding significantly. Area of erythema that remains is at the right great toe on medial aspect of the first metatarsal phalangeal joint. No soft tissue crepitus on palpation. MUSCULOSKELETAL: Tenderness at right great toe distal to the metatarsal phalangeal joint. Pes planus foot type. Data : 10/05/21 04:25 10/05/21 04:25 Micro: Microbiology 10/03/21 17:44 Blood Culture - Preliminary Blood NEGATIVE TO DATE 10/03/21 17:44 Blood Culture - Preliminary Blood NEGATIVE TO DATE 10/04/21 13:02 Bacterial Antigens - Final Urine Kidney A&P Assessment and plan (1) Cellulitis of right lower extremity: Status: Acute (2) Insect bite of right foot: Status: Acute (3) Diabetic peripheral neuropathy associated with type 2 diabetes mellitus: Status: Acute Plan 56-year-old uncontrolled diabetic male with cellulitis and lymphangitic streaking right lower extremity originating from right great toe, 2 small puncture wounds consistent with insect bite appreciated, does not have clinical appearance of neuropathic foot ulcer. Receiving empiric antibiotics at this time vancomycin and Zosyn, wound not deep enough to capture viable wound culture. Skin marker outlines involvement of cellulitis will monitor his response and plan on discharge with oral antibiotics when he shows clinical improvement. Can follow-up closely this week in podiatry clinic at discharge. Interim update 10/05/2021 Patient okay for discharge from podiatry standpoint. Significant clinical improvement with subsidence of erythema and lymphangitic streaking. MRI negative for foreign body, negative for septic joint and negative for osteomyelitis. No leukocytosis, patient is afebrile. Okay for discharge home on oral antibiotic regimen will follow-up in podiatry clinic 10/11/2021 4:00 PM. He is to monitor his right great toe daily and contact her clinic with any worsening of symptoms. May keep it covered with a Band-Aid, minimal dressing required as there is no open draining sore at this time. May weight-bear as tolerated. Elevate right foot while resting. 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
[2021-10-05 07:45] VITALS: BP 161/91; PULSE 81; RESP 17; TEMP 36.9; O2SAT 95
[2021-10-05] MEDS: duloxetine 30 mg Capsule PO ×2 (08:03→16:24)
[2021-10-05] MEDS: gabapentin 100 mg Capsule PO ×2 (08:03→16:25)
[2021-10-05] MEDS: colchicine 0.6 mg Tablet PO ×2 (08:04→16:24)
[2021-10-05] MEDS: insulin lispro 100 unit/1 mL SUBCUT ×2 (08:10→11:52)
[2021-10-05 09:21] LABS: Glucose Point of Care 174 mg/dL (70-110)
[2021-10-05 11:05] LABS: Glucose Point of Care 217 mg/dL (70-110)
[2021-10-05 11:26] VITALS: BP 171/97; PULSE 80; RESP 16; TEMP 36.8; O2SAT 96
[2021-10-05] MEDS: acetaminophen 325 mg Tablet 650 MG PO (11:51)
--- NOTE | 2021-10-05 12:16 | P.DS_ITS ---
Discharge Providers Date of Admission: 10/04/21 17:46 Date of Discharge: October 05, 2021 Attending Provider at Admission: Rupert Peres Attending Provider at Discharge: [place] MD Consults: Podiatry: Dr. Mcgovern Primary Care Provider: Pj Dejesus Diagnoses at Discharge Discharge Diagnosis (1) Cellulitis of right lower extremity: Status: Acute (2) Insect bite of right foot: Status: Acute (3) Diabetic peripheral neuropathy associated with type 2 diabetes mellitus: Status: Acute Reason for Visit Reason for Visit: right leg pain/swelling Brief History: History as per HPI: Pleasant 56-year-old gentleman with history of diabetes, gout, noticed redness, swelling initially in the bottom of the right hallux, starting around - Monday, with pain, redness, swelling spreading to the entire toe, proximal foot and a thin strand of redness tracking upward from the medial leg.? He is now also developed chills, in ER he is noted to be febrile 100.3.? Sinus tachycardia 116.? ESR is 39.? CRP 141.7.? He denies remembering any definitive injury.? No fracture noted on x-ray. Hospital Course Hospital Course Patient went to the hospital further evaluation and management. He was started on broad-spectrum antibiotics. Podiatry was consulted. Patient underwent imaging which ruled out osteomyelitis. His blood cultures remain negative. Patient was found to have uncontrolled type 2 diabetes mellitus. He has been discharged hemodynamically stable condition on oral Augmentin and Levaquin for next 7 days. He is advised to stop his oral hypoglycemics including glipizide, Januvia, metformin. Instead his dose of Basaglar has been increased to 20 units nightly. He is to take lispro 7 units prior to breakfast, lunch and dinner. He is to check his fasting blood sugars daily and maintain a blood sugar diary for next 2 weeks and follow-up with his primary care provider for further adjustments of insulin accordingly. If his fasting blood sugar drop below 80 he is to decrease 3 units of Basaglar to 17 units. The above plan was discussed in detail with the patient and he verbalized understanding and all his questions were answered. Physical Exam Const: COMMON NORMALS: alert GENERAL APPEARANCE: cooperative ORIENTATION/CONSCIOUSNESS: Yes awake HENMT: COMMON NORMALS: normocephalic, EAC's normal, Normal external nose present and moist oral mucous membranes HEAD & SCALP: normocephalic NOSE: Normal external nose present EXTERNAL AUDITORY CANAL: EAC's normal Neck/C-Spine: COMMON NORMALS: no meningeal signs Chest: CHEST: Yes Symmetrical chest wall rise Resp: COMMON NORMALS: clear to auscultation bilaterally AUSCULTATION: clear to auscultation bilaterally Cardio: COMMON NORMALS: regular rate, regular rhythm and No murmurs present (Cardio) RATE: regular rate RHYTHM: regular rhythm GI: COMMON NORMALS: Normal to inspection, nondistended, normoactive bowel sounds present, Soft to palpation and non-tender PALPATION: Yes Soft to palpation Extremity: COMMON NORMALS: no pedal edema OTHER: Clean dressing as per podiatry. Neuro: COMMON NORMALS: moves all extremities SENSORIUM/ORIENTATION: Yes alert MENINGEAL SIGNS: Yes no meningeal signs Psych: COMMON NORMALS: mental status grossly normal Skin: COMMON NORMALS: no wounds RASHES: no rashes Discharge Data Studies Completed and Pending Completed Studies During Hospitalization Category Date Time Status XR foot RT 2V [id number] Urgent Exams 10/03/21 17:19 Completed MR foot RT wo/w con 01100 Routine MRI 10/04/21 09:30 Completed Pending at discharge Category Date Time Status Blood Culture Stat Lab 10/03/21 17:44 Results Complete Blood Count w/Auto AM LABS Lab 10/06/21 04:00 Ordered MRSA by PCR Routine Lab 10/04/21 10:35 Received Vancomycin Trough Timed Lab 10/05/21 18:00 Ordered Radiology Impressions Foot X-Ray 10/03/21 17:19 IMPRESSION: 1. Pes planus. 2. There is edema in the soft tissues. Foot MRI 10/04/21 09:30 IMPRESSION: 1. Small amount of cellulitis in the area of ulceration distal phalanx 1st toe. 2. No evidence of drainable abscess or fluid collection. 3. No convincing evidence of osteomyelitis. Bone marrow signal appears preserve d in this area Laboratory Results WBC 8.3 10^3/uL (4.0-10.0) 10/05/21 04:25 RBC 4.14 10^6/uL (4.1-5.3) 10/05/21 04:25 Hgb 11.3 g/dL (11.7-16.6) L 10/05/21 04:25 Hct 34.0 % (42.0-52.0) L 10/05/21 04:25 MCV 82.1 fl (80-94) 10/05/21 04:25 MCH 27.3 pg (28.0-34.0) L 10/05/21 04:25 MCHC 33.2 g/dL (30.0-36.0) 10/05/21 04:25 RDW 13.2 % (12.1-15.1) 10/05/21 04:25 Plt Count 261 10^3/cmm (130-400) 10/05/21 04:25 MPV 9.8 fL (7.4-10.4) 10/05/21 04:25 Neut % (Auto) 68.1 % 10/05/21 04:25 Lymph % (Auto) 17.5 % 10/05/21 04:25 [place] % (Auto) 12.0 % 10/05/21 04:25 Eos % (Auto) 1.7 % 10/05/21 04:25 Baso % (Auto) 0.2 % 10/05/21 04:25 Neut # (Auto) 5.62 10^3/uL (1.8-7.7) 10/05/21 04:25 Lymph # (Auto) 1.4 10^3/uL (0.8-4.8) 10/05/21 04:25 [place] # (Auto) 1.0 10^3/uL (0.2-0.9) H 10/05/21 04:25 Eos # (Auto) 0.1 10^3/uL (0.0-0.8) 10/05/21 04:25 Baso # (Auto) 0.0 10^3/uL (0.0-0.1) 10/05/21 04:25 Nucleated RBC % (auto) 0 % 10/05/21 04:25 Nucleated RBCs # 0.0 /100WBC 10/05/21 04:25 ESR 39 mm/hr (0-10) H 10/03/21 17:18 Sodium 139 mmol/L (136-145) 10/05/21 04:25 Potassium 3.5 mmol/L (3.5-5.1) 10/05/21 04:25 Chloride 101 mmol/L (98-107) 10/05/21 04:25 Carbon Dioxide 29 mmol/L (22-29) 10/05/21 04:25 Anion Gap 12.5 (5-19) 10/05/21 04:25 BUN 9 mg/dL (6-20) 10/05/21 04:25 Creatinine 0.7 mg/dL (0.7-1.2) 10/05/21 04:25 GFR Calculation 117.5 mL/min (90-130) 10/05/21 04:25 Glucose 150 mg/dL (65-115) H 10/05/21 04:25 POC Glucose 217 mg/dL (70-110) H 10/05/21 10:45 Estimat Average Glucose 295 10/04/21 04:28 Hemoglobin A1c 11.9 % (4.0-6.0) H 10/04/21 04:28 Calculated Osmolality 290 mOsm/kg (285-295) 10/05/21 04:25 Lactate 2.7 mmol/L (0.5-2.2) H 10/03/21 17:18 Uric Acid 4.3 mg/dL (3.4-7.0) 10/03/21 17:18 Calcium 8.5 mg/dL (8.5-10.5) 10/05/21 04:25 Iron 21 ug/dL (59-158) L 10/04/21 04:28 TIBC 169 mcg/dl 10/04/21 04:28 % Saturation 12.4 % (20-50) L 10/04/21 04:28 Unsat Iron Binding 148 ug/dL (112-347) 10/04/21 04:28 Total Bilirubin 0.6 mg/dL (0.15-1.2) 10/05/21 04:25 AST 12 U/L (0-40) 10/05/21 04:25 ALT 14 U/L (0-41) 10/05/21 04:25 Alkaline Phosphatase 63 IU/L (40-130) 10/05/21 04:25 C-Reactive Protein 141.7 mg/L (0.0-4.9) H 10/03/21 17:18 Total Protein 6.6 g/dL (6.6-8.7) 10/05/21 04:25 Albumin 3.4 g/dL (3.5-5.2) L 10/05/21 04:25 Globulin 3.2 g/dL (1.3-4.6) 10/05/21 04:25 Triglycerides 91 mg/dL (0-150) 10/05/21 04:25 Cholesterol 128 mg/dL (0-200) 10/05/21 04:25 LDL Cholesterol, Calc 68 mg/dL (50-129) 10/05/21 04:25 Total VLDL Cholesterol 18 mg/dL (0-30) 10/05/21 04:25 HDL Cholesterol 42 mg/dL (60-100) L 10/05/21 04:25 Cholesterol/HDL Ratio 3.05 mg/dL (1.0-5.00) 10/05/21 04:25 TSH 1.18 uIU/mL (0.27-4.20) 10/04/21 04:28 Urine Color Yellow (Yellow) 10/04/21 13:02 Urine Appearance Clear (CLEAR) 10/04/21 13:02 Urine pH 6 (5-7) 10/04/21 13:02 Ur Specific [place] 1.015 (1.005-1.030) 10/04/21 13:02 Urine Protein Trace (Negative) 10/04/21 13:02 Urine Glucose (UA) 4+ (Normal) H 10/04/21 13:02 Urine Ketones Negative (Negative) 10/04/21 13:02 Urine Blood Neg (Negative) 10/04/21 13:02 Urine Nitrate Negative (Negative) 10/04/21 13:02 Urine Bilirubin Neg (Negative) 10/04/21 13:02 Urine Urobilinogen Norm mg/dL (Negative) 10/04/21 13:02 Ur Leukocyte Esterase Negative (Negative) 10/04/21 13:02 Urine RBC None /hpf (0-2) 10/04/21 13:02 Urine WBC Rare /hpf (0-5) 10/04/21 13:02 Ur Squamous Epith Cells None /hpf (0-5) 10/04/21 13:02 Amorphous Sediment Not Reportable 10/04/21 13:02 Urine Bacteria Trace /hpf (NONE) 10/04/21 13:02 Vitals Last Vital Signs Temp 98.2 F 10/05/21 11:26 Pulse 80 10/05/21 11:26 Resp 16 10/05/21 11:26 BP 171/97 10/05/21 11:26 Pulse Ox 96 10/05/21 11:26 Discharge Plan Discharge Patient Disposition: Home Condition: Stable Prescriptions: New insulin lispro [Humalog KwikPen Insulin] 100 unit/mL insulin pen 7 unit SUBCUT TID Qty: 15 0RF levofloxacin 500 mg tablet 500 mg PO Q24H 7 Days Qty: 7 0RF Continued trazodone 50 mg Tablet 50 mg PO BEDTIME 0RF lisinopril 20 mg Tablet 20 mg PO BID 0RF rizatriptan 10 mg Tablet 10 mg PO Q2H PRN (Reason: Migraine Headache) 0RF Rx Instructions: do not exceed 3 doses per 24 hrs ketorolac 10 mg Tablet 10 mg PO Q6H PRN (Reason: Pain) 0RF propranolol 40 mg Tablet 40 mg PO BEDTIME 0RF simvastatin 20 mg Tablet 20 mg PO BEDTIME 0RF gabapentin 100 mg Capsule 100 mg PO TID 0RF colchicine 0.6 mg Tablet 0.6 mg PO BID 0RF duloxetine 30 mg Capsule,Delayed Release(Dr/Ec) 30 mg PO BID 0RF amoxicillin-pot clavulanate 875-125 mg Tablet 1 tab PO Q12H 7 Days Qty: 14 0RF Changed Basaglar KwikPen U-100 Insulin 100 unit/mL (3 mL) Insulin Pen 20 unit SUBCUT BEDTIME Qty: 0 0RF Discontinued glipizide 10 mg Tablet 20 mg PO BID 0RF metformin 1,000 mg Tablet 1,000 mg PO BIDWMEAL 0RF Januvia 50 mg Tablet 50 mg PO BEDTIME 0RF Rx Instructions: with breakfast Discharge Orders: Discharge Order (Routine); Ordered 10/05/21 Ordered By: [place] Referrals: Alvin Mcgovern DPM [Physician] - 1 week Mat Hooper MD [Physician] - 2 weeks Pj Dejesus [Primary Care Provider] - 2 weeks Discharge Diet: Diabetic Discharge Activity: Resume usual activity and Increase activity as tolerated Patient Instructions: Opioid Safety Activity Restrictions/Additional Instructions: You will be on 2 antibiotics going forward for next 7 days. Antibiotics will be Augmentin and Levaquin. For diabetes going forward take Basaglar which is a long-acting insulin 20 units at night. Take short-acting Humalog insulin 7 units prior to each meals. Please check your blood sugars fasting daily and maintain a blood sugar diary. If your fasting blood sugar drops below 80 you can reduce the dose of long- acting/Basaglar insulin by 3 units. May keep it covered with a Band-Aid, minimal dressing required as there is no open draining sore at this time.? May weight-bear as tolerated.? Elevate right foot while resting. Discharge Attestations Time Spent in Discharge Care*: greater than 30 min Specific Discharge Activities: educating patient, discussing with pcp/other providers, discussing with case mgr/social workers/dc planners, documenting/other paperwork and evaluating patient/reviewing data Status at Discharge: Cognitive status at discharge: cognitively intact , Behavioral status at discharge: cooperative , Functional status at discharge: independent ambulation , Overall status at discharge: patient is back to baseline Quality Metrics Clinical Quality Measures [ No reported AMI, CVA or VTE this stay] Coding Level of Care Code Acute [facility] DC note Diagnoses Cellulitis of right lower extremity L03.115 Insect bite of right foot S90.861A; W57.XXXA Diabetic peripheral neuropathy associated with type 2 diabetes mellitus E11.42
--- NOTE | 2021-10-05 16:42 | PC.NURSE ---
Discharge Note Patient discharged to home via private vehicle accompanied by family member. Discharge instructions reviewed with patient and/or community health representative. Mobile pharmacy medications and/or prescriptions provided. Belongings/home medications returned. Educated patient on how to check blood sugar and where to give injections including alternating sites. Patient verbalized understanding.
[2021-10-05 16:45] VITALS: BP 171/97; PULSE 80; RESP 16; TEMP 36.8; O2SAT 96
== END 2021-10-05 16:30 | disposition home or self-care (01) | DRG 638 ==
LOC: ER 17:19 → MEDSURG 19:31
PROVIDERS: Admitting Provider Internal Medicine; Emergency Provider Emergency Medicine; PCP Nurse Practitioner Family; Visit Provider Student in an Organized Health Care Education/Training Program
DX: E11.628 Type 2 diabetes mellitus with other skin complications (principal); L03.115 Cellulitis of right lower limb; E11.65 Type 2 diabetes mellitus with hyperglycemia; E11.40 Type 2 diabetes mellitus with diabetic neuropathy, unspecified; M10.9 Gout, unspecified; S90.861A Insect bite (nonvenomous), right foot, initial encounter; W57.XXXA Bitten or stung by nonvenomous insect and other nonvenomous arthropods, initial encounter; Z79.891 Long term (current) use of opiate analgesic
CPT/HCPCS: 36415; 36416; 73620; 73720; 80048; 80053; 80061; 81001; 82962; 83036; 83540; 83550; 83605; 84443; 84550; 85025; 85651; 86140; 86403; 87040; 87641; 96365; 96367; 96372; 99285; A9579; G0378; J1650; J1815; J2543; J3370; J7030; J7050

== ENCOUNTER → 2021-10-11 15:55 | Outpatient (BNVA) | payer MEDICARE, MEDICAID, SELFPAY | PROVIDERS: PCP Nurse Practitioner Family; Visit Provider Podiatrist Foot & Ankle Surgery | DX: S90.861D Insect bite (nonvenomous), right foot, subsequent encounter (principal); W57.XXXD Bitten or stung by nonvenomous insect and other nonvenomous arthropods, subsequent encounter; L03.115 Cellulitis of right lower limb; E11.628 Type 2 diabetes mellitus with other skin complications; L08.9 Local infection of the skin and subcutaneous tissue, unspecified; L03.90 Cellulitis, unspecified; Z79.4 Long term (current) use of insulin | CPT/HCPCS: 99214 ==

== ENCOUNTER → 2021-10-12 12:39 | Outpatient (BNVA) | payer MEDICARE, MEDICAID, SELFPAY | PROVIDERS: PCP Nurse Practitioner Family; Visit Provider Internal Medicine | DX: E11.628 Type 2 diabetes mellitus with other skin complications (principal); L08.9 Local infection of the skin and subcutaneous tissue, unspecified; S90.861D Insect bite (nonvenomous), right foot, subsequent encounter; W57.XXXD Bitten or stung by nonvenomous insect and other nonvenomous arthropods, subsequent encounter; E78.2 Mixed hyperlipidemia; Z79.4 Long term (current) use of insulin; Z87.891 Personal history of nicotine dependence | CPT/HCPCS: 80048; 84681; 86337; 86341; 99204 ==

== ENCOUNTER → 2021-10-18 13:22 | Outpatient (BNVA) | payer MEDICARE, MEDICAID, SELFPAY | PROVIDERS: PCP Nurse Practitioner Family; Visit Provider Podiatrist Foot & Ankle Surgery | DX: L08.9 Local infection of the skin and subcutaneous tissue, unspecified (principal); S90.861D Insect bite (nonvenomous), right foot, subsequent encounter; W57.XXXD Bitten or stung by nonvenomous insect and other nonvenomous arthropods, subsequent encounter; E11.9 Type 2 diabetes mellitus without complications; L03.115 Cellulitis of right lower limb; E11.628 Type 2 diabetes mellitus with other skin complications; L03.90 Cellulitis, unspecified | CPT/HCPCS: 99213; 99214 ==

== ENCOUNTER → 2021-11-01 10:49 | Outpatient (BNVA) | payer MEDICARE, MEDICAID, SELFPAY | PROVIDERS: PCP Nurse Practitioner Family; Visit Provider Podiatrist Foot & Ankle Surgery | DX: E11.621 Type 2 diabetes mellitus with foot ulcer (principal); L08.9 Local infection of the skin and subcutaneous tissue, unspecified; S90.861D Insect bite (nonvenomous), right foot, subsequent encounter; W57.XXXD Bitten or stung by nonvenomous insect and other nonvenomous arthropods, subsequent encounter; L03.115 Cellulitis of right lower limb; E11.628 Type 2 diabetes mellitus with other skin complications; L03.90 Cellulitis, unspecified; L97.513 Non-pressure chronic ulcer of other part of right foot with necrosis of muscle; Z79.4 Long term (current) use of insulin | CPT/HCPCS: 11043 ==

== ENCOUNTER → 2021-11-25 08:11 | Outpatient (BNVA) | payer MEDICARE, MEDICAID, SELFPAY | PROVIDERS: PCP Nurse Practitioner Family; Visit Provider Podiatrist Foot & Ankle Surgery | DX: L97.513 Non-pressure chronic ulcer of other part of right foot with necrosis of muscle (principal); E11.621 Type 2 diabetes mellitus with foot ulcer; Z79.4 Long term (current) use of insulin; L03.115 Cellulitis of right lower limb; M86.9 Osteomyelitis, unspecified; E11.42 Type 2 diabetes mellitus with diabetic polyneuropathy | CPT/HCPCS: 99215 ==

== ENCOUNTER 2021-11-25 09:08 | Inpatient (IN) | payer MEDICARE, MEDICAID, SELFPAY ==
[2021-11-25] VITALS (8 sets, daily range): BP systolic 156–174; BP diastolic 89–101; PULSE 79–96; RESP 14–19; TEMP 36.6–37; O2SAT 94–97; BMI 23.7
--- NOTE | 2021-11-25 09:12 | W.ED.EXTPRO ---
HPI - Extremity Problem General: Chief complaint: General Medical Stated complaint: RT foot swollen/sores-sent by dr Brannon Seen by Provider: 11/25/21 09:11 History of Present Illness: 56-year-old gentleman with history of poorly controlled diabetes who presents to the emergency department due to diabetic foot wound. He follows with podiatry who he saw this morning. He reports previous course of antibiotics however has had failure to improve a wound on the right great toe. Does have mild increased discomfort. Denies signs of systemic illness. Referred to emergency department for operative management inpatient setting. No other specific changes in health, exacerbating, or alleviating factors identified. Onset (ago): day(s) Pain Consistency: constant Location: lower extremity Severity scale (1-10): 2 Exacerbating factors: weight bearing and walking Review of Systems General: Reports: 10 or more systems reviewed and unremarkable except in HPI and below PFSH ED PFSH: Medical History Depression with anxiety Diabetes Diabetic peripheral neuropathy associated with type 2 diabetes mellitus Essential tremor Gout Hyperlipemia, mixed Hypertension Pain and swelling of toe Peripheral neuropathy Surgical History History of hernia surgery No pertinent past surgical history Family History Mother Diabetes Social History Smoking and tobacco status: never smoked Alcohol intake: never Physical Exam Const: COMMON NORMALS: alert GENERAL APPEARANCE: cooperative, well developed and ill appearing (Chronically) HENMT: COMMON NORMALS: normocephalic and atraumatic HEAD & SCALP: normocephalic and atraumatic Eye: COMMON NORMALS: conjunctivae normal CONJUNCTIVA: Yes conjunctivae normal SCLERA: sclerae normal Neck/C-Spine: COMMON NORMALS: supple GENERAL: Yes trachea midline Resp: COMMON NORMALS: normal respiratory effort and clear to auscultation bilaterally EFFORT & INSPECTION: Yes able to speak in complete sentences AUSCULTATION: clear to auscultation bilaterally Cardio: COMMON NORMALS: regular rate and regular rhythm RATE: regular rate RHYTHM: regular rhythm GI: COMMON NORMALS: Soft to palpation PALPATION: Yes Soft to palpation and No Tenderness to palpation present (GI) PERCUSSION: normal to percussion Extremity: NARRATIVE EXTREMITY EXAM: Right great toe with erythema and wound with purulence and malodor, some necrotic tissue appreciated. DP PT 2+ GENERAL: Yes normal exam except as noted and No edema Neuro: COMMON NORMALS: moves all extremities SENSORIUM/ORIENTATION: Yes alert and No Orientation impaired Psych: COMMON NORMALS: mental status grossly normal and Normal thought process present THOUGHT PROCESS: Normal thought process present Course ED course: - Patient was seen and evaluated by me at bedside - Patient placed on cardiac monitors, IV access obtained - Initial evaluation notable for exam as above. - Labs personally interpreted by me -Antibiotics ordered - Labs notable for no leukocytosis though inflammatory markers are elevated. Glucose significantly elevated without evidence of DKA. - Imaging notable for foot x-ray performed prior to arrival today suggesting acute osteomyelitis with soft tissue edema and gas - Upon serial reexamination after treatment the patient was similar - Based on patient history, evaluation, and testing as interpreted the most likely cause of the patient's condition is osteomyelitis in the context of diabetic foot wound - The results of ED evaluation were discussed with the patient including plan for admission due to requirement for level of care not available if discharged to prevent significant worsening/deterioration. - Admitting service was contacted and Dr Zepeda with the hospitalist service agreed to admit the patient - Patient was admitted without further deterioration or significant events. Note: Click bubbles or prepopulated rodriguez in note writing are used for assistance with data collection and billing and are inherently more limited than narrative and other text portions of this note. Please use narrative for additional clinical history and defer to narrative/free test for any case of contradictory information. If information appears in only free text or click bubble it should be considered present or absent as reported. Please contact note publications writer for clarifications of clinical information or contradictory information. MDM is a brief summary, contradictory or erroneous seeming information should be clarified and full note should be reviewed. Vital Signs: Vital signs: Vital Signs Temperature 98.0 F 11/27/21 14:48 Pulse Rate 78 11/27/21 14:48 Respiratory Rate 18 11/27/21 14:48 Blood Pressure 148/90 11/27/21 14:48 Pulse Oximetry 95 11/27/21 14:48 Oxygen Delivery Md thod 11/27/21 11:47 MDM - Extremity (Nontraumatic) Medical Decision Making 56-year-old gentleman with poorly controlled diabetes presenting from podiatry clinic with diabetic foot wound and osteomyelitis. Patient previously on antibiotics and has failed outpatient therapy. Nontoxic on exam. Inflammatory markers elevated. Admitted for definitive management to hospitalist service with Dr. Mcgovern as sales consultant residential manager planning operative intervention. Medical Records I reviewed the patient's medical records. Lab Data I reviewed the patient's lab results. : 11/27/21 04:40 11/27/21 04:40 Radiology Impressions Venous Duplex 11/25/21 11:14 IMPRESSION: No evidence of deep vein thrombosis. Foot X-Ray 11/26/21 07:43 IMPRESSION: 1. Amputation of the great toe. Laboratory Results WBC 7.1 10^3/uL (4.0-10.0) 11/25/21 09:45 RBC 4.32 10^6/uL (4.1-5.3) 11/25/21 09:45 Hgb 11.6 g/dL (11.7-16.6) L 11/25/21 09:45 Hct 34.8 % (42.0-52.0) L 11/25/21 09:45 MCV 80.6 fl (80-94) 11/25/21 09:45 MCH 26.9 pg (28.0-34.0) L 11/25/21 09:45 MCHC 33.3 g/dL (30.0-36.0) 11/25/21 09:45 RDW 13.4 % (12.1-15.1) 11/25/21 09:45 Plt Count 339 10^3/cmm (130-400) 11/25/21 09:45 MPV 9.2 fL (7.4-10.4) 11/25/21 09:45 Neut % (Auto) 72.3 % 11/25/21 09:45 Lymph % (Auto) 16.7 % 11/25/21 09:45 [place]ha % (Auto) 9.6 % 11/25/21 09:45 Eos % (Auto) 0.6 % 11/25/21 09:45 Baso % (Auto) 0.4 % 11/25/21 09:45 Neut # (Auto) 5.10 10^3/uL (1.8-7.7) 11/25/21 09:45 Lymph # (Auto) 1.2 10^3/uL (0.8-4.8) 11/25/21 09:45 Desha # (Auto) 0.7 10^3/uL (0.2-0.9) 11/25/21 09:45 Eos # (Auto) 0.0 10^3/uL (0.0-0.8) 11/25/21 09:45 Baso # (Auto) 0.0 10^3/uL (0.0-0.1) 11/25/21 09:45 Nucleated RBC % (auto) 0 % 11/25/21 09:45 Nucleated RBCs # 0.0 /100WBC 11/25/21 09:45 ESR 27 mm/hr (0-10) H 11/25/21 09:45 Sodium 127 mmol/L (136-145) L 11/25/21 09:45 Potassium 4.2 mmol/L (3.5-5.1) 11/25/21 09:45 Chloride 88 mmol/L (98-107) L 11/25/21 09:45 Carbon Dioxide 29 mmol/L (22-29) 11/25/21 09:45 Anion Gap 14.2 (5-19) 11/25/21 09:45 BUN 17 mg/dL (6-20) 11/25/21 09:45 Creatinine 0.7 mg/dL (0.7-1.2) 11/25/21 09:45 GFR Calculation 117.5 mL/min (90-130) 11/25/21 09:45 Glucose 519 mg/dL (65-115) H* 11/25/21 09:45 POC Glucose 598 mg/dL (70-110) H* 11/25/21 09:36 Calculated Osmolality 289 mOsm/kg (285-295) 11/25/21 09:45 Lactate 1.2 mmol/L (0.5-2.2) 11/25/21 09:45 Calcium 9.3 mg/dL (8.5-10.5) 11/25/21 09:45 Total Bilirubin 0.5 mg/dL (0.15-1.2) 11/25/21 09:45 AST 11 U/L (0-40) 11/25/21 09:45 ALT 9 U/L (0-41) 11/25/21 09:45 Alkaline Phosphatase 91 U/L (40-130) 11/25/21 09:45 C-Reactive Protein 85.4 mg/L (0.0-4.9) H 11/25/21 09:45 Total Protein 7.2 g/dL (6.6-8.7) 11/25/21 09:45 Albumin 3.3 g/dL (3.5-5.2) L 11/25/21 09:45 Globulin 3.9 g/dL (1.3-4.6) 11/25/21 09:45 Serum Ketones Negative (Negative) 11/25/21 10:11 Discharge Plan Discharge Patient Disposition: Admitted As Inpatient Admit Provider: Sal Zepeda Clinical Impression: Diabetic foot infection, Gangrene of toe Condition: Stable Discharge Diet: Diabetic Discharge Activity: Limit activity as instructed Coding Level of Care Code ED Hearing Healthcare Practitioner for Stiven Fwd Exam Comprehensive
[2021-11-25 09:51] LABS: Glucose Point of Care 598 mg/dL (70-110)
[2021-11-25 10:04] LABS: Basophils % 0.4 %; Eosinophils % 0.6 %; Hematocrit 34.8 % (42.0-52.0); Hemoglobin 11.6 g/dL (11.7-16.6); Lymphocytes # 1.2 10^3/uL (0.8-4.8); Lymphocytes % 16.7 %; Mean Corpuscular HGB Conc 33.3 g/dL (30.0-36.0); Mean Corpuscular Hemoglobin 26.9 pg (28.0-34.0); Mean Corpuscular Volume 80.6 fl (80-94); Mean Platelet Volume 9.2 fL (7.4-10.4); Monocytes # 0.7 10^3/uL (0.2-0.9); Monocytes % 9.6 %; Neutrophils % 72.3 %; Nucleated Red Blood Cells % 0 %; Platelet Count 339 10^3/cmm (130-400); Red Blood Count 4.32 10^6/uL (4.1-5.3); Red Cell Distribution Width 13.4 % (12.1-15.1); White Blood Count 7.1 10^3/uL (4.0-10.0)
[2021-11-25 10:06] LABS: Erythrocyte Sedimentation Rate 27 mm/hr (0-10)
[2021-11-25 10:16] LABS: Alanine Aminotransferase 9 U/L (0-41); Albumin Level 3.3 g/dL (3.5-5.2); Alkaline Phosphatase 91 U/L (40-130); Anion Gap 14.2 (5-19); Aspartate Amino Transferase 11 U/L (0-40); Blood Urea Nitrogen 17 mg/dL (6-20); C Reactive Protein 85.4 mg/L (0.0-4.9); Calcium 9.3 mg/dL (8.5-10.5); Carbon Dioxide 29 mmol/L (22-29); Chloride 88 mmol/L (98-107); Globulin 3.9 g/dL (1.3-4.6); Glomerular Filtration Rate 117.5 mL/min (90-130); Osmolality Calculated 289 mOsm/kg (285-295); Potassium 4.2 mmol/L (3.5-5.1); Sodium 127 mmol/L (136-145); Total Bilirubin 0.5 mg/dL (0.15-1.2); Total Protein 7.2 g/dL (6.6-8.7)
[2021-11-25] MEDS: piperacillin-tazobactam 4.5 GM in sodium chloride 0.9% (plus) 50 ML IV (10:18)
[2021-11-25 10:25] LABS: Glucose 519 mg/dL (65-115)
[2021-11-25 10:42] LABS: Ketone (Acetest) Serum Negative (Negative)
[2021-11-25 10:52] LABS: Lactate (Lactic Acid level) 1.2 mmol/L (0.5-2.2)
--- NOTE | 2021-11-25 11:08 | PM.HP ---
Providers/Chief Complaint Admitting Physician: Sal Zepeda MD, Hospitalist. Primary Care Provider: Pj Dejesus Chief Complaint: RT foot swollen/sores-sent by History of Present Illness Armando Berumen is a 56 year old male who presented with a gangrenous right toe to podiatry today and was directed to the ER for admission and surgery. Patient reports he has been having issues with the toe for greater than 2 weeks. He denies any fever or chills. He states he has been having some pain up the right lower extremity into the calf recently. He denies any nausea or vomiting. In clinic, it was noted that there is evidence of osteomyelitis on his x-ray as well, of the proximal phalanx. He has had some increased discomfort with it. He has been having significant drainage. Review of Systems General: Reports: 10 or more systems reviewed and unremarkable except in HPI and below Const: Denies: fever(s) or chills Eyes: Denies: change in vision ENMT: Denies: throat pain Card: Denies: chest pain Resp: Denies: dyspnea GI: Denies: abdominal pain : Denies: flank pain Musc: Reports: extremity swelling, joint swelling and joint redness Skin/Breast: Denies: rash Neuro: Denies: headache(s) Psych: Denies: anxiety or depression Endo: Denies: polyuria Rashawn/Lymph: Denies: easy bruising All/Imm: Denies: urticaria Medications/Allergies Home Medications Medication Instructions Recorded Confirmed Last Taken Type colchicine 0.6 mg tablet 0.6 mg PO BID 10/03/21 11/25/21 10/02/21 23:00 History duloxetine 30 mg capsule,delayed 30 mg PO BID 10/03/21 11/25/21 10/02/21 23:00 History release gabapentin 100 mg capsule 100 mg PO TID 10/03/21 11/25/21 10/02/21 23:00 History lisinopril 20 mg tablet 20 mg PO BID 10/03/21 11/25/21 10/02/21 23:00 History rizatriptan 10 mg tablet 10 mg PO Q2H PRN Migraine Headache 10/03/21 11/25/21 Unknown History simvastatin 20 mg tablet 20 mg PO BEDTIME 10/03/21 11/25/21 10/02/21 23:00 History trazodone 50 mg tablet 50 mg PO BEDTIME 10/03/21 11/25/21 10/01/21 23:00 History insulin glargine 100 unit/mL (3 20 unit (0.2 mL) SUBCUT BEDTIME #0 10/05/21 11/25/21 10/01/21 23:00 Rx mL) subcutaneous pen (Basaglar mL KwikPen U-100 Insulin) insulin lispro 100 unit/mL 7 unit (0.07 mL) SUBCUT TID #15 mL 10/05/21 11/25/21 Unknown Rx subcutaneous pen (Humalog KwikPen (U-100) Insulin) blood sugar diagnostic (ReliOn #400 ea 10/12/21 11/25/21 Unknown Rx Prime Test Strips) blood-glucose meter (ReliOn Micro #1 ea 10/12/21 11/25/21 Unknown Rx Glucose Monitor) blood-glucose meter,continuous #1 ea 10/12/21 11/25/21 Unknown Rx (Dexcom G6 Parking Meter Attendant) blood-glucose sensor (Dexcom G6 #9 ea 10/12/21 11/25/21 Unknown Rx Sensor) blood-glucose transmitter (Dexcom #3 ea 10/12/21 11/25/21 Unknown Rx G6 Transmitter) sitagliptin 50 mg tablet (Januvia) 50 mg PO DAILY 10/12/21 11/25/21 Unknown History Allergies Allergy/AdvReac Type Severity Reaction Status Date / Time iodine Allergy ALGY-Swell Verified 11/25/21 10:00 Lip/Tongue/Throat Sulfa (Sulfonamide Allergy ADR-Itching Verified 11/25/21 10:00 Antibiotics) PFSH Acute PFSH: Medical History (Updated 11/25/21 @ 11:19 by Sal Zepeda MD) Depression with anxiety Diabetes Diabetic peripheral neuropathy associated with type 2 diabetes mellitus Essential tremor Gout Hyperlipemia, mixed Hypertension Pain and swelling of toe Peripheral neuropathy Surgical History History of hernia surgery No pertinent past surgical history Family History Mother Diabetes Social History Smoking and tobacco status: never smoked Alcohol intake: never Vitals/I&O/Wt Last Vital Signs Temp 98.6 F 11/25/21 09:16 Pulse 92 11/25/21 09:16 Resp 18 11/25/21 09:16 BP 166/93 11/25/21 09:16 Pulse Ox 96 11/25/21 09:16 O2 Del Method 11/25/21 09:16 11/24/21 11/25/21 11/25/21 22:59 06:59 14:59 Intake Total 50 / 50 Balance 50 / 50 Weight last 48 hrs Weight 81.647 kg Physical Exam Narrative: General exam is a white male, with a fresh dressing on his right foot, in no distress HEENT: Atraumatic and normocephalic. Pupils equally round. Oropharynx missing 2 front teeth. Clear. Neck is supple no lymphadenopathy or thyromegaly Cardiovascular regular rate and rhythm without murmur, no S3 or S4 Lungs clear no wheezing or crackles Abdomen is soft nontender positive bowel sounds. No obvious organomegaly exam is deferred Extremities no cyanosis clubbing. Right great toe is not evaluated as it was just reviewed in podiatry. Notation there is significant for right great toe with erythema to the level of the first metatarsal joint with purulence and malodor. He does have some pain, on palpation of his right calf. I do not see any erythema streaking. Posterior tibial pulses easily palpable. Neuro no obvious focal deficits Skin see findings under extremity Data : 11/25/21 09:45 11/25/21 09:45 Other Labs: Foot x-ray demonstrated osteomyelitis right great toe ESR 27 LFTs normal CRP 85 Albumin 3.3 Serum ketones negative A&P Assessment and plan (1) Gangrene of toe: Has associated osteomyelitis with gangrene. Vancomycin and Zosyn will be continued Surgical consult with Dr. Mcgovern for amputation Antibiotic treatment following amputation will be discussed. If osteomyelitis can be resected it is unlikely he will need IV antibiotics at home. Local cultures will be obtained at time of surgery Appears to have a good pulse, right posterior tibial Status: Acute (2) Osteomyelitis: See above Status: Acute (3) Diabetes: Continue home long-acting insulin Continue 7 units of insulin with meals. Add mild sliding scale Sodium is falsely low, secondary to markedly elevated sugar Status: Acute (4) Right leg pain: Has some right calf pain, in alignment with vein. Check venous duplex. Rule out DVT. Status: Acute Plan Multiple other medical problems as outlined in past medical history Full code Lovenox for DVT prophylaxis No direct contraindications to surgery Attestations Medical Necessity Statement*: Will need greater than 2 midnight stay for evaluation and treatment of gangrene, osteomyelitis for IV antibiotics as well as surgical approach. Coding Level of Care Code Acute Aoc Director Intelligence Officer for [facility] Deannad Diagnoses Gangrene of toe I96 Osteomyelitis M86.9 Diabetes E11.9 Right leg pain M79.604
--- NOTE | 2021-11-25 11:14 | USR_ITS ---
PROCEDURE INFORMATION: Exam: US Duplex Right Lower Extremity Veins, Limited Exam date and time: 11/25/2021 12:44 PM Age: 56 years old Clinical indication: Edema, localized; Lower extremity, right; Additional info: Calf pain TECHNIQUE: Imaging protocol: Real-time Duplex ultrasound of the Right Lower Extremity with 2-D peña scale, color Doppler flow and spectral waveform analysis with image documentation. Limited exam was focused on the right lower extremity veins. COMPARISON: MR foot RT wo/w con [id number] 10/04/2021 1:52 PM FINDINGS: Right deep veins: Unremarkable. The common femoral, femoral, proximal profunda femoral and popliteal veins are patent without thrombus. Normal Doppler waveforms. Normal compressibility and/or augmentation response. Right superficial veins: Unremarkable. Saphenofemoral junction is patent without thrombus. Soft tissues: Unremarkable. US/[place] [id number] IMPRESSION: No evidence of deep vein thrombosis.
--- NOTE | 2021-11-25 12:35 | PC.NURSE ---
nurse was notified about elevated BP
[2021-11-25] MEDS: enoxaparin 40 mg/0.4 mL Syringe SUBCUT (13:09)
[2021-11-25] MEDS: insulin lispro 100 unit/1 mL SUBCUT ×2 (13:10→17:33)
[2021-11-25 14:53] LABS: Glucose Point of Care 365 mg/dL (70-110)
[2021-11-25 15:06] LABS: Add Urine Microscopic? YES; Bilirubin Urine Neg (Negative); Blood Urine 2+ (Negative); Glucose Urine UA 4+ (Normal); Ketones Urine Negative (Negative); Leukocyte Esterase Urine Negative (Negative); Nitrate Urine Negative (Negative); Protein Urine 1+ (Negative); Specific Gravity, Urine 1.015 (1.005-1.030); Squamous Epithelial Cell Urine 0-4 /hpf (0-5); Urine Appearance Clear (CLEAR); Urine Color Yellow (Yellow); Urobilinogen Urine Norm (Negative); pH Urine 5 (5-7)
[2021-11-25 15:07] LABS: Add Urine Culture? No
[2021-11-25 15:08] LABS: WBC Urine 0-4 /hpf (0-5)
[2021-11-25] MEDS: insulin lispro 100 unit/1 mL 12 UNIT SUBCUT (15:14)
[2021-11-25] MEDS: insulin lispro 100 unit/1 mL 7 UNIT SUBCUT (15:14)
[2021-11-25] MEDS: piperacillin-tazobactam 3.375 GM in sodium chloride 0.9% (plus) 50 ML IV ×2 (15:15→23:49)
[2021-11-25] MEDS: gabapentin 100 mg Capsule PO ×2 (15:16→20:35)
[2021-11-25 17:03] LABS: Glucose Point of Care 165 mg/dL (70-110)
[2021-11-25] MEDS: duloxetine 30 mg Capsule PO (17:32)
[2021-11-25] MEDS: lisinopril 20 mg Tablet PO (17:32)
[2021-11-25] MEDS: colchicine 0.6 mg Tablet PO (17:32)
[2021-11-25] MEDS: atorvastatin 40 mg Tablet 20 MG PO (20:35)
[2021-11-25] MEDS: trazodone 50 mg Tablet PO (20:35)
[2021-11-25] MEDS: vancomycin 1,250 MG/250 ML PIGGYBACK 200 MG IV (20:38)
[2021-11-25 21:23] LABS: Glucose Point of Care 142 mg/dL (70-110)
[2021-11-26] VITALS (15 sets, daily range): BP systolic 103–177; BP diastolic 61–96; PULSE 75–93; RESP 12–18; TEMP 36.1–37.1; O2SAT 94–97
[2021-11-26] MEDS: vancomycin 1,250 MG/250 ML PIGGYBACK 200 MG IV ×3 (04:25→20:04)
[2021-11-26 05:11] LABS: Basophils % 0.4 %; Eosinophils # 0.1 10^3/uL (0.0-0.8); Eosinophils % 1.7 %; Hematocrit 32.4 % (42.0-52.0); Hemoglobin 10.4 g/dL (11.7-16.6); Lymphocytes # 2.2 10^3/uL (0.8-4.8); Lymphocytes % 30.2 %; Mean Corpuscular HGB Conc 32.1 g/dL (30.0-36.0); Mean Corpuscular Hemoglobin 26.3 pg (28.0-34.0); Mean Platelet Volume 8.9 fL (7.4-10.4); Monocytes # 0.9 10^3/uL (0.2-0.9); Neutrophils # 3.91 10^3/uL (1.8-7.7); Neutrophils % 54.3 %; Nucleated Red Blood Cells % 0 %; Platelet Count 305 10^3/cmm (130-400); Red Blood Count 3.95 10^6/uL (4.1-5.3); Red Cell Distribution Width 13.4 % (12.1-15.1); White Blood Count 7.2 10^3/uL (4.0-10.0)
[2021-11-26 05:37] LABS: Anion Gap 13.8 (5-19); Blood Urea Nitrogen 16 mg/dL (6-20); Calcium 8.7 mg/dL (8.5-10.5); Carbon Dioxide 29 mmol/L (22-29); Chloride 96 mmol/L (98-107); Glomerular Filtration Rate 117.5 mL/min (90-130); Glucose 195 mg/dL (65-115); Osmolality Calculated 287 mOsm/kg (285-295); Potassium 3.8 mmol/L (3.5-5.1); Sodium 135 mmol/L (136-145)
--- NOTE | 2021-11-26 05:56 | PC.NURSE ---
Pre op chlorhexidine prep completed by me at 05:54 in between toes and on all exposed areas of right lower extremity.
--- NOTE | 2021-11-26 06:02 | PM.PN ---
Subjective Subjective: Patient is seen bedside, denies any acute events overnight. He is n.p.o. in preparation for right great toe amputation. Denies any other complaints. Patient denies any subjective nausea, vomiting, fever, chills, shortness of breath or chest pain. Vitals/I&O/Wt Last Vital Signs Temp 98.1 F 11/26/21 04:18 Pulse 77 11/26/21 04:18 Resp 15 11/26/21 04:18 BP 103/61 11/26/21 04:18 Pulse Ox 96 11/26/21 04:18 O2 Del Method 11/25/21 20:00 11/25/21 11/25/21 11/26/21 14:59 22:59 06:59 Intake Total 550 / 550 640 / 1190 350 / 1540 Output Total 550 / 550 Balance 0 / 0 640 / 640 350 / 990 Weight last 48 hrs Weight 180 lb Physical Exam Narrative: Patient is alert and oriented ?3 and in no acute distress.? The following is a focused bilateral lower extremity exam. VASCULAR: Dorsalis pedis palpable bilaterally.? Posterior tibial arteries palpable +2.? Capillary refill time less than 3 seconds to the distal hallux bilaterally. Calf is supple and nontender proximally and distally.? Decreased pedal hair growth.? Focal edema to the right great toe. NEUROLOGICAL: Protective sensation intact 6/10 sites, tested with [place] monofilament to bilateral feet. DERMATOLOGICAL: Wound probes from medial to lateral at the right great toe with erythema at the right great toe to the level of the first metatarsal phalangeal joint.? Wound probes directly to bone at the right hallux both distal and proximal phalanx.? Purulence and malodor present.? Necrotic fascia and joint capsule exposed. MUSCULOSKELETAL: Tenderness at popliteal lymph nodes to the right.? Tenderness at right great toe distal to the metatarsal phalangeal joint.? Pes planus foot type. CARDIOVASCULAR: S1, S2, normal rate, normal rhythm. Dorsalis pedis and posterior tibial arteries palpable. LUNGS: Clear to auscltation, no use of acessory muscles, no crackles or wheezes. Data : 11/26/21 04:57 11/26/21 04:57 A&P Assessment and plan (1) Osteomyelitis: Status: Acute Qualifiers: Osteomyelitis type: other acute Osteomyelitis location: foot Laterality: right Qualified Code(s): M86.171 - Other acute osteomyelitis, right ankle and foot (2) Diabetic peripheral neuropathy associated with type 2 diabetes mellitus: Status: Acute (3) Cellulitis of right foot: Status: Acute Plan 56-year-old poorly controlled diabetic male last A1c 11.9 presents with gangrenous right great toe.? Patient has failed outpatient antibiotics and local wound care, noncompliance contributing to failure, did not follow-up in clinic and continued weightbearing.? -Receiving empiric IV antibiotics -Is n.p.o. in preparation for right hallux amputation this morning -Will likely require primary delayed closure once surrounding soft tissue amputation site shows clinical improvement during his hospitalization, not planning on PICC line, anticipating curative level of amputation. -Aerobic and anaerobic wound cultures taken in clinic 11/25/2021 -X-ray right foot 3 views taken in clinic, shows osseous destruction at the right hallux interphalangeal joint involving lysis of the base of the distal phalanx and head of the proximal phalanx consistent with osteomyelitis. -Recommended nonweightbearing to the right lower extremity.? May heel touch only for transfers. Attestations Medical Necessity Statement*: Cellulitis right lower extremity, osteomyelitis right hallux Coding Level of Care Code Acute Roving Marker for [facility] Deanna Diagnoses Osteomyelitis M86.171 Osteomyelitis type: other acute Osteomyelitis location: foot Laterality: right Diabetic peripheral neuropathy associated with type 2 diabetes mellitus E11.42 Cellulitis of right foot L03.115
--- NOTE | 2021-11-26 06:10 | PC.NURSE ---
Pt left floor @ 0610 via wheelchair for surgery
--- NOTE | 2021-11-26 06:12 | PC.NURSE ---
Patient cell phone and one ring placed with other belongings in med surg [facility].
--- NOTE | 2021-11-26 06:54 | W.PM.OPSUD ---
Surgery/Procedure H&P Update DATE OF PROCEDURE: November 26, 2021 DATE H&P PERFORMED: 11/25/21 CHANGES TO PREVIOUS DOCUMENTATION: None PLANNED PROCEDURE: Operation Date: 11/26/21 07:00 Proposed Procedures p right great toe amputation(Right) - Alvin Mcgovern DPM
--- NOTE | 2021-11-26 06:56 | P.ANESASSM_ITS ---
Pre-Anesthetic Assessment Height/Weight: Height 1.85 m Weight 81.647 kg Temp Pulse Resp BP Pulse Ox O2 Del Method 98.5 F 84 18 147/92 96 11/26/21 06:23 11/26/21 06:23 11/26/21 06:23 11/26/21 06:23 11/26/21 06:23 11/26/21 06:23 Operation Date: 11/26/21 07:00 Proposed Procedures p right great toe amputation(Right) - Alvin Mcgovern DPM Familial anesthetic complications: None Was Beta Gibson taken within 24 hours: N/A Was Clonidine taken within 24 hours: N/A Last intake: Intake Last Liquid Date 11/25/21 Last Liquid Time 23:45 Last Solid Date 11/25/21 Last Solid Time 18:00 Social No alcohol and No tobacco Exam alert, oriented x 3, clear to auscultation bilaterally and regular rate & rhythm Airway Mallampati: Class I Dentition: other (multiple missing) Comments: Comments: full ochoa CV/HEM Hypertension Metabolic Diabetes Mellitus and Hyperlipidemia Neuropsych essential tremor Anesthetic Plan ASA status: 3 Anesthesia: MAC Risk of > 500 ml blood loss (7ml/kg in children): No Medications/Allergies Home Medications Medication Instructions Recorded Confirmed Last Taken Type colchicine 0.6 mg tablet 0.6 mg PO BID 10/03/21 11/25/21 10/02/21 23:00 History duloxetine 30 mg capsule,delayed 30 mg PO BID 10/03/21 11/25/21 10/02/21 23:00 History release gabapentin 100 mg capsule 100 mg PO TID 10/03/21 11/25/21 10/02/21 23:00 History lisinopril 20 mg tablet 20 mg PO BID 10/03/21 11/25/21 10/02/21 23:00 History rizatriptan 10 mg tablet 10 mg PO Q2H PRN Migraine Headache 10/03/21 11/25/21 Unknown History simvastatin 20 mg tablet 20 mg PO BEDTIME 10/03/21 11/25/21 10/02/21 23:00 Hi story trazodone 50 mg tablet 50 mg PO BEDTIME 10/03/21 11/25/21 10/01/21 23:00 History insulin glargine 100 unit/mL (3 20 unit (0.2 mL) SUBCUT BEDTIME #0 10/05/21 11/25/21 10/01/21 23:00 Rx mL) subcutaneous pen (Basaglar mL KwikPen U-100 Insulin) insulin lispro 100 unit/mL 7 unit (0.07 mL) SUBCUT TID #15 mL 10/05/21 11/25/21 Unknown Rx subcutaneous pen (Humalog KwikPen (U-100) Insulin) blood sugar diagnostic (ReliOn #400 ea 10/12/21 11/25/21 Unknown Rx Prime Test Strips) blood-glucose meter (ReliOn Micro #1 ea 10/12/21 11/25/21 Unknown Rx Glucose Monitor) blood-glucose meter,continuous #1 ea 10/12/21 11/25/21 Unknown Rx (Dexcom G6 Director Of Catering) blood-glucose sensor (Dexcom G6 #9 ea 10/12/21 11/25/21 Unknown Rx Sensor) blood-glucose transmitter (Dexcom #3 ea 10/12/21 11/25/21 Unknown Rx G6 Transmitter) sitagliptin 50 mg tablet (Januvia) 50 mg PO DAILY 10/12/21 11/25/21 Unknown History Allergies Allergy/AdvReac Type Severity Reaction Status Date / Time iodine Allergy ALGY-Swell Verified 11/25/21 10:00 Lip/Tongue/Throat Sulfa (Sulfonamide Allergy ADR-Itching Verified 11/25/21 10:00 Antibiotics) Current Medications Generic Name Dose Route Start Last Admin Trade Name Freq PRN Reason Stop Dose Admin Atorvastatin Calcium 20 mg 11/25/21 21:00 11/25/21 20:35 Atorvastatin 40 Mg Tablet PO 20 mg BEDTIME JEANNETTE Administration Colchicine 0.6 mg 11/25/21 18:00 11/25/21 17:32 Colchicine 0.6 Mg Tablet PO 0.6 mg BID JEANNETTE Administration Duloxetine HCl 30 mg 11/25/21 18:00 11/25/21 17:32 Duloxetine 30 Mg Capsule PO 30 mg BID JEANNETTE Administration Enoxaparin Sodium 40 mg 11/25/21 13:00 11/25/21 13:09 Enoxaparin 40 Mg/0.4 Ml Syringe SUBCUT 40 mg Q24H JEANNETTE Administration Gabapentin 100 mg 11/25/21 15:00 11/25/21 20:35 Gabapentin 100 Mg Capsule PO 100 mg TID JEANNETTE Administration Vancomycin/PEG/NADA/Lysine/Water 1,250 mg in 250 mls @ 200 mls/hr 11/25/21 20:00 11/26/21 05:44 Vancocin IV Infused Q8H JEANNETTE Infusion Piperacillin Sod/Tazobactam 50 mls @ 12.5 mls/hr 11/25/21 16:00 11/26/21 03:51 Sod 3.375 gm/ Sodium Chloride IV Infused Q8H JEANNETTE Infusion Insulin Glargine 20 unit 11/25/21 21:00 11/25/21 21:56 Insulin Glargine 100 Units/1 Ml SUBCUT Not Given BEDTIME JEANNETTE Insulin Human Lispro 7 unit 11/25/21 15:00 11/25/21 21:56 Insulin Lispro 100 Unit/1 Ml SUBCUT Not Given TID JEANNETTE Insulin Human Lispro 0 unit 11/25/21 12:02 11/25/21 21:56 Insulin Lispro 100 Unit/1 Ml SUBCUT Not Given WM&BEDTIME JEANNETTE Protocol Lisinopril 20 mg 11/25/21 18:00 11/25/21 17:32 Lisinopril 20 Mg Tablet PO 20 mg BID JEANNETTE Administration Trazodone HCl 50 mg 11/25/21 21:00 11/25/21 20:35 Trazodone 50 Mg Tablet PO 50 mg BEDTIME JEANNETTE Administration PFS Anesthesia Medical History (Updated 11/26/21 @ 06:04 by Alvin Mcgovern DPM) Depression with anxiety Diabetes Diabetic peripheral neuropathy associated with type 2 diabetes mellitus Essential tremor Gout Hyperlipemia, mixed Hypertension Pain and swelling of toe Peripheral neuropathy Surgical History History of hernia surgery No pertinent past surgical history Family History Mother Diabetes Social History Smoking and tobacco status: never smoked Alcohol intake: never Data Anesthesia : 11/26/21 04:57 11/26/21 04:57 Short CBC 11/25/21 11/26/21 Range/Units 09:45 04:57 WBC 7.1 7.2 (4.0-10.0) 10^3/uL Hgb 11.6 L 10.4 L (11.7-16.6) g/dL Hct 34.8 L 32.4 L (42.0-52.0) % MCV 80.6 82.0 (80-94) fl Plt Count 339 305 (130-400) 10^3/cmm Neut % (Auto) 72.3 54.3 % Neut # (Auto) 5.10 3.91 (1.8-7.7) 10^3/uL BMP 11/25/21 11/26/21 09:45 04:57 Sodium 127 L 135 L Potassium 4.2 3.8 Chloride 88 L 96 L Carbon Dioxide 29 29 BUN 17 16 Creatinine 0.7 0.7 Glucose 519 H* 195 H Calcium 9.3 8.7 Liver Function 11/25/21 Range/Units 09:45 Total Bilirubin 0.5 (0.15-1.2) mg/dL AST 11 (0-40) U/L ALT 9 (0-41) U/L Alkaline Phosphatase 91 (40-130) U/L Albumin 3.3 L (3.5-5.2) g/dL Urine 11/25/21 Range/Units 14:39 Urine Color Yellow (Yellow) Urine Appearance Clear (CLEAR) Urine pH 5 (5-7) Ur Specific [place] 1.015 (1.005-1.030) Urine Protein 1+ H (Negative) Urine Glucose (UA) 4+ H (Normal) Urine Ketones Negative (Negative) Urine Nitrate Negative (Negative) Urine Bilirubin Neg (Negative) Ur Leukocyte Esterase Negative (Negative) Urine RBC None (0-2) /hpf Urine WBC 0-4 H (0-5) /hpf Coags 11/25/21 11/25/21 09:45 09:45 ESR 27 H C-Reactive Protein 85.4 H Cardiac Studies: No Data to Display
--- NOTE | 2021-11-26 07:33 | P.OP_ITS ---
Operative Report Date of procedure: November 26, 2021 Pre-op diagnosis: Osteomyelitis right hallux Post-op diagnosis: Same Post-op findings: None Procedure done: Right hallux amputation at metatarsal phalangeal joint Implants: 3-0 Vicryl 4-0 nylon Specimens removed/disposition: Proximal phalanx right hallux bone sent to microbiology for gram stain and culture Pathology: Right hallux sent to pathology Surgeon: Alvin Mcgovern D.P.M. [employer] Internship: [employer] Estimated blood loss: 10 15 Brief History: 56-year-old poorly controlled diabetic male last A1c 11.9 presents with gangr enous right great toe.? Patient has failed outpatient antibiotics and local wound care, noncompliance contributing to failure, did not follow-up in clinic and continued weightbearing.? Recommending admission to the hospital service for empiric IV antibiotics, right hallux amputation and likely delayed closure due to poor surrounding soft tissue quality.? Wound began early September 2021 from a insect bite, had cellulitis which responded well to antibiotic therapy.? Had routine visits in podiatry clinic with intervals of improvement until 2 weeks ago.? He no showed his appointment in podiatry, stopped taking antibiotics and increase his activities and the wound digressed rapidly.? He complains of radiating pain up the inside of his right leg.? Planning on right hallux amputation with possible delayed closure. Patient is n.p.o. since midnight, informed consent signed by patient and myself. Identified and initialed his right foot. Risks associated with this is better limited and admitted to pain given bleeding, numbness, infection surgical site dehiscence present regimen of injuries related to major redness of intervention including iron sensation, antibiotic therapy care, offloadig. Procedure: Mild sedation patient did not bring room and remained on the gurney in supine position. A timeout was performed. Anesthesia was administered by the anesthesia service. Local anesthesia injected by myself consisting of 30 cc mixture of lidocaine and Marcaine 1:1 percent lidocaine and 25% Marcaine plain in a right Zelaya block. Well-padded pneumatic tourniquet applied to the right leg. Right lower extremity was prepped and prepped and draped utilizing aseptic technique.?Utilized. Tourniquet remained inflated during the duration of the procedure. Attention was directed to the right great toe devitalized tissue down to bone was appreciated. Rongeur utilized to harvest bone specimen from the proximal phalanx head sent to microbiology for gram stain and culture. [place] incision with a 15 blade down to bone, disarticulated at the metatarsophalangeal joint and right hallux passed from operative field. Bleeders ligated and ca uterized, tendons resected under traction, flushed with saline, margins were clean, bright white and appropriate appearance without defect at right first metatarsal head. No devitalized soft tissue at the level of amputation. Margins approximated without tension, 3-0 Vicryl subcu and 4-0 nylon in simple interrupted. Brisk Cap Refill appreciated at the amputation site. Dressing Kerlix and Maximiliano wrap followed by post op shoe. Patient elevated for discharge dietary standpoint, recommend 2 weeks of oral antibiotic broad-spectrum and I will follow-up in clinic next week and make necessary adjustments to antibiotics based on cultures. Procedure appeared curative for osteomyelitis antibiotics for soft tissue at this point, planning on 2 weeks. Patient had been instructed to keep postoperative dressing in place, dry and intact for 5 days return to clinic in podiatry next wee on monday. Decrease activity and elevate right foot. Use post op shoe for transfers with weight on heel.
--- NOTE | 2021-11-26 07:43 | XR_ITS ---
WS: [id number] Exam: XR foot RT min 3V* [id number] Date/Time of Exam: 11/26/2021 7:51 AM Reason For Exam: amputation of right hallux Comparison 11/25/2021. At the first toe has been amputated. Remaining bony structures of the right foot are unremarkable. Po stoperative soft tissue changes. XR/XR foot RT min 3V* [id number] IMPRESSION: 1. Amputation of the great toe.
--- NOTE | 2021-11-26 08:41 | P.PN_ITS ---
Subjective Subjective: Armando reports he is doing okay. He has just come back from surgery. Pain currently under control. Medications: Reviewed: Yes Vitals/I&O/Wt Last Vital Signs Temp 97.0 F L 11/26/21 07:51 Pulse 84 11/26/21 07:51 Resp 15 11/26/21 07:51 BP 139/85 11/26/21 07:51 Pulse Ox 95 11/26/21 07:51 O2 Del Method 11/26/21 07:51 11/25/21 11/26/21 11/26/21 22:59 06:59 14:59 Intake Total 640 / 1190 350 / 1540 410 / 410 Output Total Balance 640 / 640 350 / 990 400 / 400 Weight last 48 hrs Weight 81.647 kg Physical Exam Narrative: General exam NAD Neck is supple no lymphadenopathy or thyromegaly Cardiovascular regular rate and rhythm without murmur, no S3 or S4 Lungs clear no wheezing or crackles Abdomen is soft nontender positive bowel sounds. No obvious organomegaly Extremities no cyanosis clubbing. Dressing right foot. Cap refill excellent 2- 5 digits Skin see findings under extremity Data : 11/26/21 04:57 11/26/21 04:57 A&P Assessment and plan (1) Gangrene of toe: Has associated osteomyelitis with gangrene. Vancomycin and Zosyn will be continued Surgical consult with Dr. Mcgovern for amputation appreciated. He underwent his amputation today. From my understanding there will be staged closure in several days Antibiotic treatment following amputation will be discussed. If osteomyelitis can be resected it is unlikely he will need IV antibiotics at home. Local cultures will be obtained at time of surgery Appears to have a good pulse, right posterior tibial Status: Acute (2) Osteomyelitis: See above Status: Acute Qualifiers: Osteomyelitis type: other acute Osteomyelitis location: foot Laterality: right Qualified Code(s): M86.171 - Other acute osteomyelitis, right ankle and foot (3) Diabetes: Continue home long-acting insulin Continue 7 units of insulin with meals. Mild sliding scale is in addition to this Status: Acute (4) Right leg pain: Has some right calf pain, in alignment with vein. Venous duplex has been done, but report is pending. Status: Acute Plan Multiple other medical problems as outlined in past medical history Full code Lovenox for DVT prophylaxis No direct contraindications to surgery Attestations Medical Necessity Statement*: Needs continued hospitalization secondary to gangrene, right great toe with ongoing surgical management.. Coding Level of Care Code Acute Ssis Architect for [facility] Fwd Diagnoses Gangrene of toe I96 Osteomyelitis M86.171 Osteomyelitis type: other acute Osteomyelitis location: foot Laterality: right Diabetes E11.9 Right leg pain M79.604
[2021-11-26] MEDS: colchicine 0.6 mg Tablet PO ×2 (08:52→18:36)
[2021-11-26] MEDS: sitagliptin 100 mg Tablet 50 MG PO (08:52)
[2021-11-26] MEDS: duloxetine 30 mg Capsule PO ×2 (08:52→18:36)
[2021-11-26] MEDS: gabapentin 100 mg Capsule PO ×3 (08:53→20:11)
--- NOTE | 2021-11-26 10:01 | PC.CHAP ---
Pastoral Care Encounter/Spiritual Assessment Type of Contact [] Declined vp cardiovascular visit [] Patient/Family/Request visit [] Outpatient visit [] Follow-up visit [] Physician referral [] Code/Alert [x] Routine visit [] Staff referral [] Actively dying [] Patient sleeping [] Family support [] [] Out of room [] Palliative care [] [] Receiving care in room [] Pre-surgical visit [] Trauma [] Long length of stay [] ICU visit [] Other: Relational/Emotional Strength [] Patient feels connected with others/family/visitors/staff [] Distress [] Loneliness/isolation [] Abandonment Spirituality of Patient [] Person of Autumn [] Attends Anabaptism of their Autumn [x] Believes in Prayer [] Reads Bible or Anabaptism materials [] There are Spiritual issues to be addressed Manager Sports Interventions [x] Prayer [] Active listening [] Non-anxious presence [] Spiritual/emotional support [] Crisis/trauma care x [] Spiritual counseling [] Bereavement support [] Provided bereavement packet [] Provided Bible/devotional materials [] Provided toy/stuffed animal, coloring book to patient or family member [] Provided Communion [] Anointing/[place] [] Salvation [x] Completed spiritual assessment [] Other: Impact on Illness or Injury [] Angry [] Fearful [] Anxious [] Often cries [] Exhaustion [] Unable to work [] Unable to attend jewish [] Unable to walk/stand [] Unable to read [] Unable to drive [] Unable to eat/drink [] Unable to sleep [] Unable to be with family [] Patient intubated [] Other: Summary Time spent with patient 10 min
[2021-11-26 12:21] LABS: Glucose Point of Care 357 mg/dL (70-110)
[2021-11-26] MEDS: insulin lispro 100 unit/1 mL SUBCUT ×3 (12:51→20:21)
[2021-11-26] MEDS: enoxaparin 40 mg/0.4 mL Syringe SUBCUT (12:52)
[2021-11-26] MEDS: piperacillin-tazobactam 3.375 GM in sodium chloride 0.9% (plus) 50 ML IV ×2 (15:47→23:32)
[2021-11-26 17:07] LABS: Glucose Point of Care 308 mg/dL (70-110)
[2021-11-26 19:26] LABS: Vancomycin Trough 18.9 ug/mL (10-15)
[2021-11-26] MEDS: atorvastatin 40 mg Tablet 20 MG PO (20:11)
[2021-11-26] MEDS: trazodone 50 mg Tablet PO (20:11)
[2021-11-26] MEDS: insulin glargine 100 units/1 mL 20 UNIT SUBCUT (20:21)
[2021-11-26 20:32] LABS: Glucose Point of Care 424 mg/dL (70-110)
[2021-11-26 20:35] LABS: Glucose Point of Care 427 mg/dL (70-110)
[2021-11-27] VITALS: BP 148/81; PULSE 93; RESP 13; TEMP 37.1; O2SAT 96
[2021-11-27] MEDS: vancomycin 1,250 MG/250 ML PIGGYBACK 200 MG IV ×2 (03:56→11:13)
[2021-11-27 04:00] VITALS: BP 168/88; PULSE 87; RESP 14; TEMP 36.7; O2SAT 96
[2021-11-27 05:06] LABS: Basophils % 0.2 %; Eosinophils # 0.2 10^3/uL (0.0-0.8); Eosinophils % 2.6 %; Hematocrit 32.4 % (42.0-52.0); Hemoglobin 10.7 g/dL (11.7-16.6); Lymphocytes # 1.7 10^3/uL (0.8-4.8); Lymphocytes % 27.5 %; Mean Corpuscular Hemoglobin 26.7 pg (28.0-34.0); Mean Corpuscular Volume 80.8 fl (80-94); Monocytes # 0.7 10^3/uL (0.2-0.9); Monocytes % 12.1 %; Neutrophils # 3.49 10^3/uL (1.8-7.7); Neutrophils % 57.1 %; Nucleated Red Blood Cells % 0 %; Platelet Count 295 10^3/cmm (130-400); Red Blood Count 4.01 10^6/uL (4.1-5.3); Red Cell Distribution Width 13.3 % (12.1-15.1); White Blood Count 6.1 10^3/uL (4.0-10.0)
[2021-11-27 05:28] LABS: Anion Gap 11.6 (5-19); Blood Urea Nitrogen 20 mg/dL (6-20); Calcium 8.3 mg/dL (8.5-10.5); Carbon Dioxide 28 mmol/L (22-29); Chloride 98 mmol/L (98-107); Glomerular Filtration Rate 117.5 mL/min (90-130); Glucose 184 mg/dL (65-115); Osmolality Calculated 285 mOsm/kg (285-295); Potassium 3.6 mmol/L (3.5-5.1); Sodium 134 mmol/L (136-145)
[2021-11-27 06:22] LABS: Glucose Point of Care 215 mg/dL (70-110)
[2021-11-27 07:41] VITALS: BP 154/92; PULSE 80; RESP 16; TEMP 36.8; O2SAT 96
[2021-11-27] MEDS: insulin lispro 100 unit/1 mL SUBCUT ×2 (08:39→11:12)
[2021-11-27] MEDS: colchicine 0.6 mg Tablet PO (08:40)
[2021-11-27] MEDS: gabapentin 100 mg Capsule PO ×2 (08:40→14:15)
[2021-11-27] MEDS: duloxetine 30 mg Capsule PO (08:40)
[2021-11-27] MEDS: piperacillin-tazobactam 3.375 GM in sodium chloride 0.9% (plus) 50 ML IV (08:40)
--- NOTE | 2021-11-27 08:59 | PM.PN ---
Subjective Subjective: Chart reviewed and spoke to the patient over the phone this morning, denies any acute events overnight. Pain is well controlled. [facility] dispensed OrthoWedge heel Darco shoe for offloading of the forefoot. Patient denies any subjective nausea, vomiting, fever, chills, shortness of breath or chest pain. Vitals/I&O/Wt Last Vital Signs Temp 98.3 F 11/27/21 07:41 Pulse 80 11/27/21 07:41 Resp 16 11/27/21 07:41 BP 154/92 11/27/21 07:41 Pulse Ox 96 11/27/21 07:41 O2 Del Method 11/27/21 07:41 11/26/21 11/27/21 11/27/21 22:59 06:59 14:59 Intake Total 1260 / 2160 540 / 2700 Balance 1260 / 2150 540 / 2690 Weight last 48 hrs Weight 180 lb Physical Exam Narrative: Surgical dressings are intact, no strikethrough. Data : 11/27/21 04:40 11/27/21 04:40 A&P Assessment and plan (1) Osteomyelitis: Status: Acute Qualifiers: Osteomyelitis type: other acute Osteomyelitis location: foot Laterality: right Qualified Code(s): M86.171 - Other acute osteomyelitis, right ankle and foot (2) Diabetic peripheral neuropathy associated with type 2 diabetes mellitus: Status: Acute (3) Cellulitis of right foot: Status: Acute Plan 56-year-old poorly controlled diabetic male last A1c 11.9 presents with gangrenous right great toe.? Right hallux amputation at metatarsal phalangeal joint performed 11/26/2021 with primary closure Clean margins observed intraoperatively Recommending 2 weeks of oral antibiotics for soft tissue Okay for discharge from podiatry standpoint on broad-spectrum oral antibiotic regimen, podiatry will follow cultures and adjust as needed Patient has OrthoWedge Darco shoe to be worn for transfers Recommend surgical dressing to remain clean, dry and intact until his follow-up visit in podiatry clinic 11/30/2021 at 9:00 AM, patient is aware of date and time Attestations Medical Necessity Statement*: Osteomyelitis right foot Coding Level of Care Code Acute Audience Coordinator for [facility] F[facility] Diagnoses Osteomyelitis M86.171 Osteomyelitis type: other acute Osteomyelitis location: foot Laterality: right Diabetic peripheral neuropathy associated with type 2 diabetes mellitus E11.42 Cellulitis of right foot L03.115
--- NOTE | 2021-11-27 09:05 | ANE.PACU2 ---
Inpatient post-anesthesia follow up: Airway intact: Yes Vital signs: Temperature 98.3 F Pulse Rate 80 Respiratory Rate 16 Blood Pressure 154/92 Pulse Oximetry 96 Oxygen Delivery Me thod [ Room Air Current Rate & Del sandra] Oxygen Delivery Me thod Room Air Oxygen Flow Rate Fraction of Inspir ed Oxygen Hydration adequate: Yes Nausea and vomiting: No Pain level: 2 Mental status: Baseline
[2021-11-27] MEDS: sitagliptin 100 mg Tablet 50 MG PO (09:48)
[2021-11-27 09:59] VITALS: PULSE 75; O2SAT 96
[2021-11-27 11:01] LABS: Glucose Point of Care 316 mg/dL (70-110)
[2021-11-27 11:47] VITALS: BP 148/90; PULSE 78; RESP 18; TEMP 36.7; O2SAT 95
[2021-11-27] MEDS: enoxaparin 40 mg/0.4 mL Syringe SUBCUT (14:13)
--- NOTE | 2021-11-27 14:46 | PC.NURSE ---
Patient educated on signs and symptoms of infection. Educated to wear post op shoe when up and ambulating. Patient stated understanding. Patient discharging today. IV discontinued. Tip of catheter intact. Discharge instructions discussed as well as follow up appointments and medications. Patient will call for his ride.
[2021-11-27 14:48] VITALS: BP 148/90; PULSE 78; RESP 18; TEMP 36.7; O2SAT 95
--- NOTE | 2021-11-27 20:37 | PM.DCS ---
Discharge Providers Date of Admission: 11/25/21 10:35 Date of Discharge: November 27, 2021 Attending Provider at Admission: Sal Zepeda MD Attending Provider at Discharge: Rupert Peres Primary Care Provider: Pj Dejesus Diagnoses at Discharge Discharge Diagnosis (1) Osteomyelitis: Status: Acute Qualifiers: Osteomyelitis type: other acute Osteomyelitis location: foot Laterality: right Qualified Code(s): M86.171 - Other acute osteomyelitis, right ankle and foot (2) Diabetic peripheral neuropathy associated with type 2 diabetes mellitus: Status: Acute (3) Cellulitis of right foot: Status: Acute Reason for Visit Reason for Visit: RT foot swollen/sores-sent by [facility] Hospital Course Pleasant 56-year-old gentleman with diabetes and peripheral neuropathy, other comorbidities was admitted for assessment management by referral from podiatry office due to gangrene and osteomyelitis of right hallux, was empirically treated with Zosyn, vancomycin, underwent right hallux amputation with removal of infected tissue and bone 11/26 with primary closure. As per recommendation he will complete additional 2 weeks of oral antibiotics. Discussed with him ciprofloxacin, doxycycline. Darco shoe to be worn for transfers. He will be coming back to podiatry office for reassessment on 11/30. Please assist him with continued improvement in diabetes control. Please also reassess with the rizatriptan is safe for him to continue. Physical Exam Const: COMMON NORMALS: patient oriented x3 and alert GENERAL APPEARANCE: cooperative ORIENTATION/CONSCIOUSNESS: Yes awake HENMT: COMMON NORMALS: oropharynx normal Neck/C-Spine: COMMON NORMALS: no JVD Resp: COMMON NORMALS: normal respiratory effort and clear to auscultation bilaterally AUSCULTATION: clear to auscultation bilaterally Cardio: COMMON NORMALS: no JVD, regular rhythm, S1 normal heart sound present, S2 normal heart sound present and No murmurs present (Cardio) RHYTHM: regular rhythm HEART SOUNDS: S1 normal heart sound present and S2 normal heart sound present GI: COMMON NORMALS: Normal to inspection, nondistended, normoactive bowel sounds present, Soft to palpation and non-tender PALPATION: Yes Soft to palpation Extremity: COMMON NORMALS: no joint enlargement and no pedal edema OTHER: R foot clean dressing, no extension of erythema, swelling proximally. No bleeding or discharge noted. Neuro: COMMON NORMALS: patient oriented x3 and moves all extremities SENSORIUM/ORIENTATION: Yes alert Skin: COMMON NORMALS: no rashes or lesions noted GENERAL SKIN EXAM: no rashes or lesions noted Discharge Data Studies Completed and Pending Completed Studies During Hospitalization Category Date Time Status XR foot RT min 3V* [id number] Routine Exams 11/26/21 07:43 [place] [id number] Routine Ultrasound 11/25/21 11:14 Completed Pending at discharge Category Date Time Status Tissue Culture and Gram Stain Routine Lab 11/26/21 07:17 Received Pathology: Surgical [PTH] Routine Pth 11/26/21 07:50 Received Radiology Impressions Venous Duplex 11/25/21 11:14 IMPRESSION: No evidence of deep vein thrombosis. Foot X-Ray 11/26/21 07:43 IMPRESSION: 1. Amputation of the great toe. Laboratory Results WBC 6.1 10^3/uL (4.0-10.0) 11/27/21 04:40 RBC 4.01 10^6/uL (4.1-5.3) L 11/27/21 04:40 Hgb 10.7 g/dL (11.7-16.6) L 11/27/21 04:40 Hct 32.4 % (42.0-52.0) L 11/27/21 04:40 MCV 80.8 fl (80-94) 11/27/21 04:40 MCH 26.7 pg (28.0-34.0) L 11/27/21 04:40 MCHC 33.0 g/dL (30.0-36.0) 11/27/21 04:40 RDW 13.3 % (12.1-15.1) 11/27/21 04:40 Plt Count 295 10^3/cmm (130-400) 11/27/21 04:40 MPV 9.0 fL (7.4-10.4) 11/27/21 04:40 Neut % (Auto) 57.1 % 11/27/21 04:40 Lymph % (Auto) 27.5 % 11/27/21 04:40 [place] % (Auto) 12.1 % 11/27/21 04:40 Eos % (Auto) 2.6 % 11/27/21 04:40 Baso % (Auto) 0.2 % 11/27/21 04:40 Neut # (Auto) 3.49 10^3/uL (1.8-7.7) 11/27/21 04:40 Lymph # (Auto) 1.7 10^3/uL (0.8-4.8) 11/27/21 04:40 [place] # (Auto) 0.7 10^3/uL (0.2-0.9) 11/27/21 04:40 Eos # (Auto) 0.2 10^3/uL (0.0-0.8) 11/27/21 04:40 Baso # (Auto) 0.0 10^3/uL (0.0-0.1) 11/27/21 04:40 Nucleated RBC % (auto) 0 % 11/27/21 04:40 Nucleated RBCs # 0.0 /100WBC 11/27/21 04:40 ESR 27 mm/hr (0-10) H 11/25/21 09:45 Sodium 134 mmol/L (136-145) L 11/27/21 04:40 Potassium 3.6 mmol/L (3.5-5.1) 11/27/21 04:40 Chloride 98 mmol/L (98-107) 11/27/21 04:40 Carbon Dioxide 28 mmol/L (22-29) 11/27/21 04:40 Anion Gap 11.6 (5-19) 11/27/21 04:40 BUN 20 mg/dL (6-20) 11/27/21 04:40 Creatinine 0.7 mg/dL (0.7-1.2) 11/27/21 04:40 GFR Calculation 117.5 mL/min (90-130) 11/27/21 04:40 Glucose 184 mg/dL (65-115) H 11/27/21 04:40 POC Glucose 316 mg/dL (70-110) H 11/27/21 10:50 Calculated Osmolality 285 mOsm/kg (285-295) 11/27/21 04:40 Lactate 1.2 mmol/L (0.5-2.2) 11/25/21 09:45 Calcium 8.3 mg/dL (8.5-10.5) L 11/27/21 04:40 Total Bilirubin 0.5 mg/dL (0.15-1.2) 11/25/21 09:45 AST 11 U/L (0-40) 11/25/21 09:45 ALT 9 U/L (0-41) 11/25/21 09:45 Alkaline Phosphatase 91 U/L (40-130) 11/25/21 09:45 C-Reactive Protein 85.4 mg/L (0.0-4.9) H 11/25/21 09:45 Total Protein 7.2 g/dL (6.6-8.7) 11/25/21 09:45 Albumin 3.3 g/dL (3.5-5.2) L 11/25/21 09:45 Globulin 3.9 g/dL (1.3-4.6) 11/25/21 09:45 Urine Color Yellow (Yellow) 11/25/21 14:39 Urine Appearance Clear (CLEAR) 11/25/21 14:39 Urine pH 5 (5-7) 11/25/21 14:39 Ur Specific [place] 1.015 (1.005-1.030) 11/25/21 14:39 Urine Protein 1+ (Negative) H 11/25/21 14:39 Urine Glucose (UA) 4+ (Normal) H 11/25/21 14:39 Urine Ketones Negative (Negative) 11/25/21 14:39 Urine Blood 2+ (Negative) H 11/25/21 14:39 Urine Nitrate Negative (Negative) 11/25/21 14:39 Urine Bilirubin Neg (Negative) 11/25/21 14:39 Urine Urobilinogen Norm mg/dL (Negative) 11/25/21 14:39 Ur Leukocyte Esterase Negative (Negative) 11/25/21 14:39 Urine RBC None /hpf (0-2) 11/25/21 14:39 Urine WBC 0-4 /hpf (0-5) H 11/25/21 14:39 Ur Squamous Epith Cells 0-4 /hpf (0-5) H 11/25/21 14:39 Amorphous Sediment Not Reportable 11/25/21 14:39 Urine Bacteria None /hpf (NONE) 11/25/21 14:39 Vancomycin Trough 18.9 ug/mL (10-15) H 11/26/21 19:00 Serum Ketones Negative (Negative) 11/25/21 10:11 Vitals Last Vital Signs Temp 98.0 F 11/27/21 14:48 Pulse 78 11/27/21 14:48 Resp 18 11/27/21 14:48 BP 148/90 11/27/21 14:48 Pulse Ox 95 11/27/21 14:48 O2 Del Method 11/27/21 11:47 Discharge Plan Discharge Patient Disposition: Home Condition: Stable Prescriptions: New ciprofloxacin HCl 500 mg tablet 500 mg PO BID 12 Days Qty: 24 0RF doxycycline hyclate 100 mg tablet 100 mg PO BID 12 Days Qty: 24 0RF acetaminophen 325 mg Tablet 650 mg PO Q6H PRN (Reason: Mild/Mod Pain Or Temp >/= 101) Qty: 30 3RF hydrocodone-acetaminophen 5-325 mg tablet 1 tab PO TID PRN (Reason: pain, severe) Qty: 6 0RF Continued Januvia 50 mg tablet 50 mg PO DAILY (DME) blood-glucose meter [ReliOn Micro Glucose Monitor] Kit See Rx Instructions .Route Qty: 1 0RF Rx Instructions: Check BS 4 times a day. (DME) Dexcom G6 Portable Feed Mill Operator Misc See Rx Instructions .Route Qty: 1 0RF Rx Instructions: Check BS 4-6 times a day. (DME) Dexcom G6 Sensor Device See Rx Instructions .Route Qty: 9 3RF Rx Instructions: Change every 10 days. (DME) Dexcom G6 Transmitter Device See Rx Instructions .Route Qty: 3 3RF Rx Instructions: Change every 90 days. (DME) ReliOn Prime Test Strips Strip See Rx Instructions .Route Qty: 400 3RF Rx Instructions: Check BS 4 times a day. trazodone 50 mg Tablet 50 mg PO BEDTIME lisinopril 20 mg Tablet 20 mg PO BID simvastatin 20 mg Tablet 20 mg PO BEDTIME gabapentin 100 mg Capsule 100 mg PO TID colchicine 0.6 mg Tablet 0.6 mg PO BID duloxetine 30 mg Capsule,Delayed Release(Dr/Ec) 30 mg PO BID insulin lispro [Humalog KwikPen Insulin] 100 unit/mL insulin pen 7 unit SUBCUT TID Qty: 15 0RF insulin glargine [Basaglar KwikPen U-100 Insulin] 100 unit/mL (3 mL) Insulin Pen 20 unit SUBCUT BEDTIME Qty: 0 0RF Held rizatriptan 10 mg Tablet 10 mg PO Q2H PRN (Reason: Migraine Headache) Hold Instructions: Resume on 12/25/21. Rx Instructions: do not exceed 3 doses per 24 hrs Discharge Orders: Discharge Order (Routine); Ordered 11/27/21 Ordered By: Rupert Peres Referrals: Alvin Mcgovern DPM [Physician] - 11/30/21 9:00 am Pj Dejesus [Primary Care Provider] - 4-7 days (Please contact primary care provider Monday morning to schedule a hospital follow up appointment within 1 week. ) Discharge Diet: Diabetic Discharge Activity: Limit activity as instructed Patient Instructions: Ciprofloxacin (By mouth), Doxycycline (By mouth), Acetaminophen (By mouth), Hydrocodone/Acetaminophen (By mouth), Opioid Safety Activity Restrictions/Additional Instructions: Nurse will do dressing change on November 30 at 0900. OrthoWedge Darco shoe to be worn for transfers Discharge Attestations Time Spent in Discharge Care*: greater than 30 min Status at Discharge: Cognitive status at discharge: cognitively intact, Behavioral status at discharge: cooperative, Quality Metrics Clinical Quality Measures [ No reported AMI, CVA or VTE this stay] Coding Level of Care Code Acute [facility] note Diagnoses Osteomyelitis M86.171 Osteomyelitis type: other acute Osteomyelitis location: foot Laterality: right Diabetic peripheral neuropathy associated with type 2 diabetes mellitus E11.42 Cellulitis of right foot L03.115
== END 2021-11-27 15:31 | disposition home or self-care (01) | DRG 617 ==
LOC: ER 10:35 → MEDSURG 11:29
PROVIDERS: Podiatrist Foot & Ankle Surgery; Admitting Provider Internal Medicine; Emergency Provider Emergency Medicine; PCP Nurse Practitioner Family; Visit Provider Internal Medicine
PROC: 0Y6P0Z0 Detachment at Right 1st Toe, Complete, Open Approach (ICD-10-PCS; principal; 2021-11-26 07:00)
DX: E11.69 Type 2 diabetes mellitus with other specified complication (principal); E11.52 Type 2 diabetes mellitus with diabetic peripheral angiopathy with gangrene; M86.171 Other acute osteomyelitis, right ankle and foot; M86.671 Other chronic osteomyelitis, right ankle and foot; I96 Gangrene, not elsewhere classified; L03.115 Cellulitis of right lower limb; E11.42 Type 2 diabetes mellitus with diabetic polyneuropathy; F41.8 Other specified anxiety disorders; G25.0 Essential tremor; M10.9 Gout, unspecified; E78.2 Mixed hyperlipidemia; I10 Essential (primary) hypertension; M79.604 Pain in right leg; Z79.84 Long term (current) use of oral hypoglycemic drugs; Z79.891 Long term (current) use of opiate analgesic; Z79.4 Long term (current) use of insulin
CPT/HCPCS: 36415; 36416; 73630; 80048; 80053; 80202; 81001; 82009; 82962; 83605; 85025; 85651; 86140; 87070; 87075; 87077; 87176; 87186; 87205; 88305; 88311; 93971; 94760; 96365; 96367; 96372; 99215; 99285; J1650; J1815; J2543; J2704; J3010; J3370; J3490; J7040

== ENCOUNTER → 2021-12-06 15:05 | Outpatient (BNVA) | payer MEDICARE, MEDICAID, SELFPAY | PROVIDERS: PCP Nurse Practitioner Family; Visit Provider Podiatrist Foot & Ankle Surgery | DX: Z98.890 Other specified postprocedural states (principal); L03.115 Cellulitis of right lower limb; M86.9 Osteomyelitis, unspecified; E11.42 Type 2 diabetes mellitus with diabetic polyneuropathy; Z79.4 Long term (current) use of insulin | CPT/HCPCS: 99024; 99214 ==

== ENCOUNTER → 2021-12-13 13:49 | Outpatient (BNVA) | payer MEDICARE, MEDICAID, SELFPAY | PROVIDERS: PCP Nurse Practitioner Family; Visit Provider Podiatrist Foot & Ankle Surgery | DX: Z98.890 Other specified postprocedural states (principal); L03.115 Cellulitis of right lower limb; M86.9 Osteomyelitis, unspecified; E11.42 Type 2 diabetes mellitus with diabetic polyneuropathy | CPT/HCPCS: 99024; 99214 ==